=== PATIENT | male | born 1955 ===

== ENCOUNTER 2018-10-17 17:04 | Inpatient (IN) | payer OTHER ==
[2018-10-17] MEDS ORDERED: ACETAMINOPHEN TAB 325 MG TAB PO STA (17:28)
--- NOTE | 2018-10-17 17:38 | ED ---
Fever HPI - General Chief Complaint: Fever Stated Complaint: cough, SOB Time Seen by Provider: 10/17/18 17:28 Source: patient, family Mode of arrival: ambulatory Limitations: language barrier - History of Present Illness Initial Comments: 63-year-old male with no past medical history currently on no medications present today for chief complaint of cough 3 week fever times one day. Rubbing Bed Operator was used for translation, patient's family is at bedside. Patient states that he has had a cough for 3 weeks. He states when he coughs hard he has chest pain otherwise there is no pain in the chest no pain with respirations. Patient denies any hemoptysis or leg swelling. Patient states that he usually has seasonal ALLERGIES and he initially thought that this was what was going on however today developed a fever of 103F. He presented to [facility] a few days prior when they were told he had a virus and was told take [id number] medications. Patient denies abdominal pain he denies pain with urination. Patient denies sore throat, ear pain, headache, dizziness, neck stiffness. Remaining ROS (-). Upon arrival patient febrile, HR elevated. BP WNL. - Related Data Allergies Allergy/AdvReac Type Severity Reaction Status Date / Time No Known Allergies Allergy Verified 10/17/18 17:26 Review of Systems ROS Statement: Those systems with pertinent positive or pertinent negative responses have been documented in the HPI. ROS Other: All systems not noted in ROS Statement are negative. Past Medical History Past Medical History: No Reported History History of Any Multi-Drug Resistant Organisms: None Reported Past Surgical History: No Surgical Hx Reported Past Psychological History: No Psychological Hx Reported Smoking Status: Never smoker Past Alcohol Use History: Occasional Past Drug Use History: None Reported General Exam - General Exam Comments Initial Comments: General: The patient is awake and alert, in no distress, and does not appear acutely ill. Eye: +3 mm pupils are equal, round and reactive to light, extra-ocular movement s are intact. No nystagmus. There is normal conjunctiva bilaterally. No signs of icterus. No photophobia Ears, nose, mouth and throat: There are moist mucous membranes and no oral lesions. Oropharynx was not erythematous there is no tonsillar enlargement exudates or lesions. Uvula midline. Tympanic membranes are not erythematous or is no effusions bulging or retraction. No tenderness to palpation of the mastoid. No anterior cervical lymphadenopathy. Rhinorrhea, clear and bilateral nares. No tripoding, no drooling. Neck: The neck is supple, there is no tenderness or JVD. No nuchal rigidity Cardiovascular: There is a regular rate and rhythm. No murmur, rub or gallop is appreciated. Respiratory: Lungs are clear to auscultation, respirations are non-labored, breath sounds are equal. No wheezes, stridor, rales, or rhonchi. No retractions or abdominal breathing. Cough on exam. Gastrointestinal: Soft, non-distended, non-tender abdomen without masses or organomegaly noted. There is no rebound or guarding present. Bowel sounds are unremarkable. Musculoskeletal: Normal ROM, no tenderness. Strength 5/5. Sensation intact. Radial pulses equal bilaterally 2+. Neurological: A&O x 3. CN II-XII intact, There are no obvious motor or sensory deficits. Coordination appears grossly intact. Speech appears normal, no muffling. Skin: Skin is warm and dry and no rashes or lesions are noted. No extremity edema Psychiatric: Cooperative Limitations: language barrier Course Vital Signs 10/17/18 17:21 Temperature 103 F H Pulse Rate 126 H Respiratory 18 Rate Blood Pressure 128/68 O2 Sat by Pulse 95 Oximetry - Reevaluation(s) Reevaluation #1: Patient evaluated with family at bedside, Patient speaks Korean-- we redo examination and history using an official store leader. Obtaining information for the [employer]. 10/17/18 17:37 Medical Decision Making - Medical Decision Making 63-year-old male presenting for cough 3 weeks. Fever times one day. Patient is febrile heart rate elevated upon arrival repeat heart rate still elevated. Concerns for possible developing sepsis. Patient has blood cultures pending. Clinical pneumonia, was able to hear rales near right lung base. Patient is stable. Patient given IVF. Patient has leukocytosis. Given advanced age, VS with concern for impending sepsis. Patient will be admitted for IV abx and monitoring. Discussed case with Dr. Santos who was agreeable with care plan and admission. Discussed findings with patient, patient family who are agreeable and prefer admission. - Lab Data Result diagrams: 10/17/18 17:59 10/17/18 17:59 Lab Results 08/28/19 08/28/19 08/28/19 Range/Units 17:59 17:59 17:59 WBC 12.2 H (3.8-10.6) k/uL RBC 4.22 L (4.30-5.90) m/uL Hgb 12.2 L (13.0-17.5) gm/dL Hct 37.2 L (39.0-53.0) % MCV 88.3 (80.0-100.0) fL MCH 28.9 (25.0-35.0) pg MCHC 32.7 (31.0-37.0) g/dL RDW 13.0 (11.5-15.5) % Plt Count 450 (150-450) k/uL Neutrophils % 83 % Lymphocytes % 8 % Monocytes % 7 % Eosinophils % 1 % Basophils % 0 % Neutrophils # 10.2 H (1.3-7.7) k/uL Lymphocytes # 1.0 (1.0-4.8) k/uL Monocytes # 0.8 (0-1.0) k/uL Eosinophils # 0.1 (0-0.7) k/uL Basophils # 0.0 (0-0.2) k/uL PT (9.0-12.0) sec INR (<1.2) APTT (22.0-30.0) sec Sodium 138 (137-145) mmol/L Potassium 4.3 (3.5-5.1) mmol/L Chloride 108 H (98-107) mmol/L Carbon Dioxide 18 L (22-30) mmol/L Anion Gap 12 mmol/L BUN 15 (9-20) mg/dL Creatinine 0.95 (0.66-1.25) mg/dL Est GFR (CKD-EPI)AfAm >90 (>60 ml/min/1.73 sqM) Est GFR (CKD-EPI)NonAf 85 (>60 ml/min/1.73 sqM) Glucose 177 H (74-99) mg/dL Plasma Lactic Acid Ed 1.2 (0.7-2.0) mmol/L Calcium 8.4 (8.4-10.2) mg/dL Total Bilirubin 0.9 (0.2-1.3) mg/dL AST 47 (17-59) U/L ALT 60 (21-72) U/L Alkaline Phosphatase 154 H (38-126) U/L Troponin I (0.000-0.034) ng/mL Total Protein 7.1 (6.3-8.2) g/dL Albumin 3.5 (3.5-5.0) g/dL Urine Color Urine Appearance (Clear) Urine pH (5.0-8.0) Ur Specific Lyons (1.001-1.035) Urine Protein (Negative) Urine Glucose (UA) (Negative) Urine Ketones (Negative) Urine Blood (Negative) Urine Nitrite (Negative) Urine Bilirubin (Negative) Urine Urobilinogen (<2.0) mg/dL Ur Leukocyte Esterase (Negative) Urine RBC (0-5) /hpf Urine WBC (0-5) /hpf Ur Squamous Epith Cells (0-4) /hpf Urine Mucus (None) /hpf Urine Sperm (None) /hpf 10/17/18 10/17/18 10/17/18 Range/Units 17:59 17:59 18:25 WBC (3.8-10.6) k/uL RBC (4.30-5.90) m/uL Hgb (13.0-17.5) gm/dL Hct (39.0-53.0) % MCV (80.0-100.0) fL MCH (25.0-35.0) pg MCHC (31.0-37.0) g/dL RDW (11.5-15.5) % Plt Count (150-450) k/uL Neutrophils % % Lymphocytes % % Monocytes % % Eosinophils % % Basophils % % Neutrophils # (1.3-7.7) k/uL Lymphocytes # (1.0-4.8) k/uL Monocytes # (0-1.0) k/uL Eosinophils # (0-0.7) k/uL Basophils # (0-0.2) k/uL PT 11.4 (9.0-12.0) sec INR 1.1 (<1.2) APTT 24.2 (22.0-30.0) sec Sodium (137-145) mmol/L Potassium (3.5-5.1) mmol/L Chloride (98-107) mmol/L Carbon Dioxide (22-30) mmol/L Anion Gap mmol/L BUN (9-20) mg/dL Creatinine (0.66-1.25) mg/dL Est GFR (CKD-EPI)AfAm (>60 ml/min/1.73 sqM) Est GFR (CKD-EPI)NonAf (>60 ml/min/1.73 sqM) Glucose (74-99) mg/dL Plasma Lactic Acid Ed (0.7-2.0) mmol/L Calcium (8.4-10.2) mg/dL Total Bilirubin (0.2-1.3) mg/dL AST (17-59) U/L ALT (21-72) U/L Alkaline Phosphatase (38-126) U/L Troponin I <0.012 (0.000-0.034) ng/mL Total Protein (6.3-8.2) g/dL Albumin (3.5-5.0) g/dL Urine Color Dark Yellow Urine Appearance Clear (Clear) Urine pH 6.0 (5.0-8.0) Ur Specific Lyons 1.028 (1.001-1.035) Urine Protein 1+ H (Negative) Urine Glucose (UA) Negative (Negative) Urine Ketones Negative (Negative) Urine Blood Trace H (Negative) Urine Nitrite Negative (Negative) Urine Bilirubin Negative (Negative) Urine Urobilinogen 12.0 (<2.0) mg/dL Ur Leukocyte Esterase Negative (Negative) Urine RBC 4 (0-5) /hpf Urine WBC 1 (0-5) /hpf Ur Squamous Epith Cells <1 (0-4) /hpf Urine Mucus Few H (None) /hpf Urine Sperm Rare (None) /hpf Disposition Clinical Impression: Pneumonia, Systemic inflammatory response syndrome (SIRS) Disposition: [facility] Condition: Stable Is patient prescribed a controlled substance at d/c from ED?: No Referrals: None,Stated [Primary Care Provider] - 1-2 days Time of Disposition: 19:42 Decision to Admit Reason: Admit from EC Decision Date: 10/17/18 Decision Time: 19:42
[2018-10-17 18:11] LABS: Basophils % (A) 0 %; Eosinophils # (A) 0.1 k/uL (0-0.7); Eosinophils % (A) 1 %; HCT 37.2 % (39.0-53.0); HGB 12.2 gm/dL (13.0-17.5); Lymphocytes % (A) 8 %; MCH 28.9 pg (25.0-35.0); MCHC 32.7 g/dL (31.0-37.0); MCV 88.3 fL (80.0-100.0); Mean Platelet Volume 6.8; Monocytes # (A) 0.8 k/uL (0-1.0); Monocytes % (A) 7 %; Neutrophils # (A) 10.2 k/uL (1.3-7.7); Neutrophils % (A) 83 %; Platelet Count 450 k/uL (150-450); RBC 4.22 m/uL (4.30-5.90); WBC 12.2 k/uL (3.8-10.6)
[2018-10-17] MEDS: SODIUM CHLORIDE 0.9% 500 ML 500 ML IV SCH ×2 (18:18→19:45)
[2018-10-17 18:22] LABS: INR 1.1 (<1.2); Partial Thromboplastin Time 24.2 sec (22.0-30.0); Prothrombin Time 11.4 sec (9.0-12.0)
--- NOTE | 2018-10-17 18:25 | XR ---
EXAMINATION TYPE: XR chest 2V DATE OF EXAM: 10/17/2018 COMPARISON: None INDICATION: Fever short of breath TECHNIQUE: Frontal and lateral views of the chest are obtained. FINDINGS: The heart size is mildly prominent. The pulmonary vasculature is normal. The lungs are clear.. IMPRESSION: 1. No acute pulmonary process.
[2018-10-17 18:37] LABS: Appearance,Urine Clear (Clear); Bilirubin,Urine Negative (Negative); Blood,Urine Trace (Negative); Color,Urine Dark Yellow; Glucose,Urine (UA) Negative (Negative); Ketones,Urine Negative (Negative); Leukocyte Esterase,Urine Negative (Negative); Mucus,Urine Few /hpf; Nitrite,Urine Negative (Negative); Protein,Urine 1+ (Negative); RBC,Urine 4 /hpf (0-5); Specific Gravity,Urine 1.028 (1.001-1.035); Sperm,Urine Rare /hpf; Squamous Epithelial Cell,Urine <1 /hpf (0-4); WBC,Urine 1 /hpf (0-5)
[2018-10-17 18:42] LABS: ALT 60 U/L (21-72); AST 47 U/L (17-59); African American GFR (CKD) >90 (>60 ml/min/1.73 sqM); Albumin 3.5 g/dL (3.5-5.0); Alkaline Phosphatase 154 U/L (38-126); Anion Gap 12 mmol/L; Blood Urea Nitrogen 15 mg/dL (9-20); Calcium 8.4 mg/dL (8.4-10.2); Carbon Dioxide 18 mmol/L (22-30); Chloride 108 mmol/L (98-107); Glucose 177 mg/dL (74-99); Potassium 4.3 mmol/L (3.5-5.1); Sodium 138 mmol/L (137-145); Total Bilirubin 0.9 mg/dL (0.2-1.3); Total Protein 7.1 g/dL (6.3-8.2)
[2018-10-17] MEDS ORDERED: SODIUM CHLORIDE 0.9% 500 ML 500 ML IV ONE (19:42)
[2018-10-17] MEDS ORDERED: SODIUM CHLORIDE 0.9% 1,000 ML IV ONE (19:42)
[2018-10-17] MEDS ORDERED: IBUPROFEN 400 MG TAB PO PRN (19:48)
[2018-10-17] MEDS ORDERED: ACETAMINOPHEN TAB 325 MG TAB PO PRN (19:48)
[2018-10-17] MEDS ORDERED: NALOXONE 0.4 MG/ML 1 ML VIAL IV PRN (19:48)
[2018-10-17] MEDS: SODIUM CHLORIDE 0.9% 1,000 ML IV SCH (19:49)
[2018-10-18] MEDS ORDERED: BENZONATATE 100 MG CAP PO PRN (00:34)
--- NOTE | 2018-10-18 00:50 | P.HPIM ---
History of Present Illness H&P Date: 10/17/18 Chief Complaint: Fever and cough 63-year-old male with no significant past medical history Patient history was obtained by talking to the family who was translating to the patient due to language barrier Patient came into the hospital today with 3 week history of subacute cough, he reports that he gets seasonal ALLERGIES and that's what he thought it was initially however because he was not improving he went to urgent care who prescribed him some medications but no antibiotics to help with his cough without much improvement. He reports cough started progressing became associated with yellow phlegm and sometimes streaks of blood. Over the past few days he started experiencing pleuritic chest pain with severe attacks of coughing. Today he was febrile feeling very tired slightly confused and generalized malaise for which she decided come to the hospital. He denies any runny nose or sore throat denies any sinus pain. Denies any muscle aches denies any neck pain denies any urinary symptoms or changes in his bowel habits denies any nausea vomiting or abdominal pain. In the ED chest x-ray was negative. However he had a fever of 103 and was tachycardic he also had elevated white count symptoms were suggestive of atypical pneumonia for which she was admitted for monitoring due to advanced age and confusion Review of Systems Pertinent positives as noted in HPI. All other systems were reviewed and are negative Past Medical History Past Medical History: No Reported History History of Any Multi-Drug Resistant Organisms: None Reported Past Surgical History: No Surgical Hx Reported Past Psychological History: No Psychological Hx Reported Smoking Status: Never smoker Past Alcohol Use History: Occasional Past Drug Use History: None Reported - Past Family History Family Family Medical History: No Reported History (No history of CAD no sick contact) Medications and Allergies Home Medications Medication Instructions Recorded Confirmed Type Benzonatate [Tessalon Perles] 100 mg PO TID PRN 10/17/18 10/17/18 History Allergies Allergy/AdvReac Type Severity Reaction Status Date / Time No Known Allergies Allergy Verified 10/17/18 20:07 Physical Exam Vitals: Vital Signs Temp Pulse Pulse Resp BP BP Pulse Ox 10/17/18 22:22 99.0 F 69 16 129/76 99 10/17/18 19:34 98.1 F 109 H 18 118/71 95 10/17/18 17:21 103 F H 126 H 18 128/68 95 Intake and Output 10/17/18 10/17/18 10/17/18 06:59 14:59 22:59 Other: Weight 84.459 kg Constitutional: No acute distress, conversant, pleasant Eyes: Anicteric sclerae, moist conjunctiva, no lid-lag Pupils equal round reactive to light ENMT: NC/AT Oropharynx clear, no erythema, exudates Neck: Supple, FROM, no masses, or JVD No carotid bruits No thyromegaly Lungs: Clear to auscultation Clear to percussion Normal respiratory effort, no accessory muscle use Cardiovascular: Heart regular in rate and rhythm, No murmurs, gallops, or rubs No peripheral edema Abdominal: Soft Nontender, no guarding, rebound or rigidity Abdomen moving with respiration Normoactive bowel sounds No hepatomegaly, No splenomegaly No palpable mass No abdominal wall hernia noted Skin: Normal temperature, tone, texture, turgor No induration No subcutaneous nodules No rash, lesions No ulcers Extremities: No digital cyanosis No clubbing Pedal pulses intact and symmetrical Radial pulses intact and symmetrical No calf tenderness Psychiatric: Alert and oriented to person, place and time Appropriate affect fair judgment Neuro Muscles Strength 5/5 in all 4 extremities Sensation to light touch grossly present throughout Cranial nerves II-XII grossly intact No focal sensory deficits Lymphatics: no palpable cervical or supraclavicular , or inguinal lymph nodes Results CBC & Chem 7: 10/17/18 17:59 10/17/18 17:59 Labs: Abnormal Lab Results - Last 24 Hours (Table) 10/17/18 10/17/18 10/17/18 Range/Units 17:59 17:59 18:25 WBC 12.2 H (3.8-10.6) k/uL RBC 4.22 L (4.30-5.90) m/uL Hgb 12.2 L (13.0-17.5) gm/dL Hct 37.2 L (39.0-53.0) % Neutrophils # 10.2 H (1.3-7.7) k/uL Chloride 108 H (98-107) mmol/L Carbon Dioxide 18 L (22-30) mmol/L Glucose 177 H (74-99) mg/dL Alkaline Phosphatase 154 H (38-126) U/L Urine Protein 1+ H (Negative) Urine Blood Trace H (Negative) Urine Mucus Few H (None) /hpf Assessment and Plan Assessment: 63-year-old male with no significant past medical history admitted as an inpatient with anticipated length of stay of more than 48 hours due to sepsis secondary to clinical pneumonia. Plan: Sepsis (leukocytosis tachycardia and fever) secondary to clinical pneumonia Subacute cough most likely secondary to atypical pneumonia, Denies any GERD symptoms, denies postnasal drip, denies flulike symptoms Follow-up cultures Check urine Legionella antigen IV fluid hydration Symptomatic control Levaquin for 5 days Mild anemia Consider age-appropriate cancer screening as an outpatient DVT prophylaxis heparin subcu 3 times a day CODE STATUS: Full code Discussed with: Patient, ER, RN Anticipated discharge: 48-[address]: Home A total of 60 minutes was spent on the care of this complex patient more than 50% of the time was spent in counseling and care coordination.
[2018-10-18] MEDS ORDERED: HEPARIN SODIUM,PORCINE 5,000 UNIT/ML 1 ML VIAL SQ SCH (08:00)
[2018-10-18] MEDS ORDERED: SODIUM CHLORIDE 0.9% 1,000 ML IV ONE ×2 (08:08→14:06)
[2018-10-18 08:30] LABS: Basophils % (A) 0 %; Eosinophils % (A) 0 %; HCT 36.2 % (39.0-53.0); HGB 11.8 gm/dL (13.0-17.5); Lymphocytes # (A) 1.5 k/uL (1.0-4.8); Lymphocytes % (A) 13 %; MCH 28.8 pg (25.0-35.0); MCHC 32.5 g/dL (31.0-37.0); MCV 88.6 fL (80.0-100.0); Mean Platelet Volume 6.9; Monocytes # (A) 0.8 k/uL (0-1.0); Monocytes % (A) 7 %; Neutrophils # (A) 9.2 k/uL (1.3-7.7); Neutrophils % (A) 78 %; Platelet Count 431 k/uL (150-450); RBC 4.08 m/uL (4.30-5.90); RDW 13.1 % (11.5-15.5); WBC 11.7 k/uL (3.8-10.6)
[2018-10-18 08:49] LABS: ALT 50 U/L (21-72); AST 27 U/L (17-59); African American GFR (CKD) >90 (>60 ml/min/1.73 sqM); Albumin 3.3 g/dL (3.5-5.0); Alkaline Phosphatase 129 U/L (38-126); Anion Gap 12 mmol/L; Blood Urea Nitrogen 12 mg/dL (9-20); Calcium 8.1 mg/dL (8.4-10.2); Carbon Dioxide 19 mmol/L (22-30); Chloride 109 mmol/L (98-107); Glucose 122 mg/dL (74-99); Potassium 4.2 mmol/L (3.5-5.1); Sodium 140 mmol/L (137-145); Total Bilirubin 1.2 mg/dL (0.2-1.3); Total Protein 6.8 g/dL (6.3-8.2)
[2018-10-18] MEDS ORDERED: guaiFENesin-Coden 100-10MG/5ML 10 ML CUP PO PRN (09:10)
[2018-10-18] MEDS: LEVOFLOXACIN 750 MG TAB PO SCH (09:14)
[2018-10-18] MEDS: SODIUM CHLORIDE 0.9% 1,000 ML IV SCH ×2 (11:07→16:57)
[2018-10-18 14:05] LABS: Glucose,Whole Blood 165 mg/dL (75-99)
[2018-10-18] MEDS ORDERED: SODIUM CHLORIDE 0.9% 500 ML 500 ML IV ONE (14:07)
[2018-10-18] MEDS ORDERED: ENOXAPARIN 100 MG/ML SYRINGE SQ STA (14:34)
[2018-10-18] MEDS ORDERED: METOPROLOL TARTRATE 25 MG TAB PO STA (14:46)
[2018-10-18] MEDS ORDERED: METOPROLOL TARTRATE 50 MG TAB PO STA (14:51)
--- NOTE | 2018-10-18 17:23 | ECHOF ---
Referral Reason:SVT new onset MEASUREMENTS -------- HEIGHT: 167.6 cm WEIGHT: 90.7 kg BP: RVIDd: 3.2 cm (< 3.3) IVSd: 0.9 cm (0.6 - 1.1) LVIDd: 4.6 cm (3.9 - 5.3) LVPWd: 1.2 cm (0.6 - 1.1) IVSs: 1.6 cm LVIDs: 3.4 cm LVPWs: 1.6 cm LAESV Index (A-L): 22.92 ml/m Ao Diam: 3.7 cm (2.0 - 3.7) AV Cusp: 2.2 cm (1.5 - 2.6) MV EXCURSION: 16.659 mm (> 18.000) MV EF SLOPE: 234 mm/s (70 - 150) EPSS: 0.3 cm MV E John: 1.35 m/s MV DecT: 98 ms MV A John: 0.54 m/s MV E/A Ratio: 2.50 FINDINGS -------- Resting tachycardia (HR>100bpm). This was a technically adequate study. The left ventricular size is normal. There is borderline concentric left ventricular hypertrophy. Overall left ventricular systolic function is normal with, an EF between 55 - 60 %. The right ventricle is normal in size. Normal LA size by volume 22+/-6 ml/m2. The right atrium is normal in size. Interatrial and interventricular septum intact. The aortic valve is trileaflet and appears structurally normal. The mitral valve is normal. The tricuspid valve appears structurally normal. Trace/mild (physiologic) pulmonic regurgitation. The aortic root size is normal. Normal inferior vena cava with normal inspiratory collapse consistent with estimated right atrial pre ssure of 5 mmHg. There is no pericardial effusion. CONCLUSIONS -------- 1. Resting tachycardia (HR>100bpm). 2. This was a technically adequate study. 3. The left ventricular size is normal. 4. There is borderline concentric left ventricular hypertrophy. 5. Overall left ventricular systolic function is normal with, an EF between 55 - 60 %. 6. The right ventricle is normal in size. 7. Normal LA size by volume 22+/-6 ml/m2. 8. The right atrium is normal in size. 9. Interatrial and interventricular septum intact. 10. The aortic valve is trileaflet and appears structurally normal. 11. The mitral valve is normal. 12. The tricuspid valve appears structurally normal. 13. Trace/mild (physiologic) pulmonic regurgitation. 14. The aortic root size is normal. 15. Normal inferior vena cava with normal inspiratory collapse consistent with estimated right atrial pressure of 5 mmHg. 16. There is no pericardial effusion. LARRY CAR OPERATOR: Joselyn Barnes RDCS
--- NOTE | 2018-10-18 17:40 | P.PN ---
Subjective Progress Note Date: 10/18/18 The patient is here and examined follow-up, the patient is obeying and there is a language barrier however patient's daughter is present is able to translate. Patient complaining of pleuritic chest discomfort and cough, denies any subjective fevers or chills. Had episodes of coughing that kept him up last night. Patient becoming increasingly tachycardic, nursing concerned, EKG showing some SVT bolus given. Echocardiogram and d-dimer ordered. Chest x-ray from yesterday showing no acute process Objective - Vital Signs Vital signs: Vital Signs Temp 97.8 F 10/18/18 11:13 Pulse 136 H 10/18/18 17:11 Resp 16 10/18/18 16:42 BP 139/90 10/18/18 16:42 Pulse Ox 92 L 10/18/18 16:42 Intake & Output 10/17/18 10/18/18 10/18/18 18:59 06:59 18:59 Intake Total 2250 Balance 2250 Weight 84.459 kg Intake: Intake, IV Titration 2250 Amount Sodium Chloride 0.9% 1, 750 000 ml @ 125 mls/hr IV . Q8H ANNIKA Rx#:[id number] Sodium Chloride 0.9% 500 500 ml 500 ml @ 999 mls/hr IV .Q31M ONE Rx#:[id number] Sodium Chloride 0.9% 500 1000 ml 500 ml @ 999 mls/hr IV .Q31M ONE Rx#:[id number] Other: Voiding Method Toilet # Voids 1 1 - Exam Constitutional: No acute distress, conversant, pleasant Eyes: Anicteric sclerae, moist conjunctiva, no lid-lag, PERRLA ENMT: NC/AT,Oropharynx clear, no erythema, exudates Neck:Supple, FROM, no masses, or JVD, No carotid bruits; No thyromegaly Lungs: Clear to auscultation, Clear to percussion, Normal respiratory effort, no accessory muscle use Cardiovascular: Heart regular in rate and rhythm, No murmurs, gallops, or rubs no peripheral edema Abdominal: Soft Nontender, nom distended, no guarding, no rebound or rigidity, Normoactive bowel sounds No hepatomegaly, No splenomegaly, No palpable mass No abdominal wall hernia noted Skin: Normal temperature, tone, texture, turgor, No induration No subcutaneous nodules, No rash, lesions, No ulcers Extremities:No digital cyanosis No clubbing, Pedal pulses intact and symmetrical Radial pulses intact and symmetrical Normal gait and station, No calf tenderness Psychiatric: Alert and oriented to person, place and time, Appropriate affect Intact judgement Neuro: Muscles Strength 5/5 in all 4 extremities, Sensation to light touch grossly present throughout, Cranial nerves II-XII grossly intact. No focal sensory deficits - Labs CBC & Chem 7: 10/18/18 07:52 10/18/18 07:52 Labs: Abnormal Lab Results - Last 24 Hours (Table) 10/17/18 10/17/18 10/17/18 Range/Units 17:59 17:59 18:25 WBC 12.2 H (3.8-10.6) k/uL RBC 4.22 L (4.30-5.90) m/uL Hgb 12.2 L (13.0-17.5) gm/dL Hct 37.2 L (39.0-53.0) % Neutrophils # 10.2 H (1.3-7.7) k/uL D-Dimer (<0.60) mg/L FEU Chloride 108 H (98-107) mmol/L Carbon Dioxide 18 L (22-30) mmol/L Glucose 177 H (74-99) mg/dL POC Glucose (mg/dL) (75-99) mg/dL Calcium (8.4-10.2) mg/dL Alkaline Phosphatase 154 H (38-126) U/L Albumin (3.5-5.0) g/dL Urine Protein 1+ H (Negative) Urine Blood Trace H (Negative) Urine Mucus Few H (None) /hpf 10/18/18 10/18/18 10/18/18 Range/Units 07:52 07:52 14:03 WBC 11.7 H (3.8-10.6) k/uL RBC 4.08 L (4.30-5.90) m/uL Hgb 11.8 L (13.0-17.5) gm/dL Hct 36.2 L (39.0-53.0) % Neutrophils # 9.2 H (1.3-7.7) k/uL D-Dimer (<0.60) mg/L FEU Chloride 109 H (98-107) mmol/L Carbon Dioxide 19 L (22-30) mmol/L Glucose 122 H (74-99) mg/dL POC Glucose (mg/dL) 165 H (75-99) mg/dL Calcium 8.1 L (8.4-10.2) mg/dL Alkaline Phosphatase 129 H (38-126) U/L Albumin 3.3 L (3.5-5.0) g/dL Urine Protein (Negative) Urine Blood (Negative) Urine Mucus (None) /hpf 10/18/18 Range/Units 14:53 WBC (3.8-10.6) k/uL RBC (4.30-5.90) m/uL Hgb (13.0-17.5) gm/dL Hct (39.0-53.0) % Neutrophils # (1.3-7.7) k/uL D-Dimer 4.69 H (<0.60) mg/L FEU Chloride (98-107) mmol/L Carbon Dioxide (22-30) mmol/L Glucose (74-99) mg/dL POC Glucose (mg/dL) (75-99) mg/dL Calcium (8.4-10.2) mg/dL Alkaline Phosphatase (38-126) U/L Albumin (3.5-5.0) g/dL Urine Protein (Negative) Urine Blood (Negative) Urine Mucus (None) /hpf Microbiology - Last 24 Hours (Table) 10/17/18 18:25 Urine Culture - Preliminary Urine,Voided Assessment and Plan (1) Dyspnea Narrative/Plan: * Patient presented with dyspnea and fever * And was started on empiric treatment for pneumonia with Rocephin and Levaquin despite negative chest x-ray * Patient continuing to be tachycardic with heart rate in the 140s elevated d- dimer, NT proBNP also elevated at 1400 hence echocardiogram ordered * Patient started on empiric treatment for PE pending CTA of the chest with therapeutic Lovenox and eliquis Current Visit: Yes Status: Acute Code(s): R06.00 - DYSPNEA, UNSPECIFIED SNOMED Code(s): 257982420 (2) Systemic inflammatory response syndrome (SIRS) Narrative/Plan: * Continue to monitor * Supportive therapy with antiemetics fluids Current Visit: Yes Status: Acute Code(s): R65.10 - SIRS OF NON-INFECTIOUS ORIGIN W/O ACUTE ORGAN DYSFUNCTION SNOMED Code(s): 592443067 (3) Sinus tachycardia Narrative/Plan: * Echocardiogram ordered and pending cardiology consulted * Transferred to cardiac telemetry unit * Given a dose of metoprolol Current Visit: Yes Status: Acute Code(s): R00.0 - TACHYCARDIA, UNSPECIFIED SNOMED Code(s): 99076020 (4) Elevated d-dimer Narrative/Plan: * As above Current Visit: Yes Status: Acute Code(s): R79.89 - OTHER SPECIFIED ABNORMAL FINDINGS OF BLOOD CHEMISTRY SNOMED Code(s): 289410966 Plan: Disposition * Follow-up consultants recommendations follow-up echo and CTA results * We'll check a influenza
--- NOTE | 2018-10-18 18:21 | CT ---
EXAMINATION TYPE: CT chest angio for PE DATE OF EXAM: 10/18/2018 COMPARISON: None HISTORY: Cough and difficulty breathing. CT DLP: 414.4 mGycm Automated exposure control for dose reduction was used. CONTRAST: CT Chest for pulmonary embolism performed with with IV Contrast, patient injected with 77ml mL of Iso jodi 370. FINDINGS: There are bilateral pleural effusions. There is right lower lobe infiltrate and atelectasis. There is pericardial effusion. Heart is enlarged. Thoracic aorta is atheromatous. There is no aneurysm or dis section. There is normal contrast opacification of the pulmonary arteries. I see no filling defect. There is n o mediastinal adenopathy. There are no hilar masses. Thoracic vertebra have normal alignment. There is spurring of the endplates in lower thoracic spine. There is no compression fracture. IMPRESSION: No evidence of pulmonary embolism. Pleural effusions and right lower lobe infiltrate and atelectasis consistent with congestive heart fa ilure. Mild pericardial effusion.
[2018-10-18] MEDS ORDERED: APIXABAN 5 MG TAB PO SCH (21:00)
[2018-10-18] MEDS: METOPROLOL TARTRATE 25 MG TAB PO SCH (21:19)
[2018-10-18] MEDS: FUROSEMIDE 10 MG/ML 4 ML VIAL IV SCH (21:39)
[2018-10-19] MEDS: FUROSEMIDE 10 MG/ML 4 ML VIAL IV SCH (07:49)
[2018-10-19] MEDS: METOPROLOL TARTRATE 25 MG TAB PO SCH ×2 (07:51→18:56)
[2018-10-19] MEDS: LEVOFLOXACIN 750 MG TAB PO SCH (07:52)
--- NOTE | 2018-10-19 08:44 | US ---
EXAMINATION TYPE: US chest DATE OF EXAM: 10/19/2018 COMPARISON: NONE CLINICAL HISTORY: pleural effusions. Bilateral pleural effusion. TECHNIQUE: Targeted ultrasound of the posterior lower bilateral hemithoraces EXAM MEASUREMENTS: Right Pleural Effusion pocket size: 2.6 cm Right skin surface to fluid distance: 2.5 cm Left Pleural Effusion pocket size: 4.3 cm Left skin surface to fluid distance: 2.9 cm Pulmonologists are able to review the images in the patient?s EMR. 1.5 cm to lung tissue on the right side. 1.5 cm to spleen on the left side. Did not martita for thoracen tesis. IMPRESSIONS: Small bilateral pleural effusions
[2018-10-19 08:51] LABS: African American GFR (CKD) >90 (>60 ml/min/1.73 sqM); Anion Gap 13 mmol/L; Blood Urea Nitrogen 13 mg/dL (9-20); Calcium 8.6 mg/dL (8.4-10.2); Carbon Dioxide 22 mmol/L (22-30); Chloride 107 mmol/L (98-107); Glucose 134 mg/dL (74-99); Potassium 3.9 mmol/L (3.5-5.1); Sodium 142 mmol/L (137-145)
[2018-10-19 09:08] LABS: Basophils % (A) 0 %; Eosinophils # (A) 0.2 k/uL (0-0.7); Eosinophils % (A) 2 %; HCT 40.4 % (39.0-53.0); HGB 13.4 gm/dL (13.0-17.5); Lymphocytes # (A) 1.3 k/uL (1.0-4.8); Lymphocytes % (A) 16 %; MCH 29.2 pg (25.0-35.0); MCHC 33.1 g/dL (31.0-37.0); MCV 88.3 fL (80.0-100.0); Mean Platelet Volume 7.2; Monocytes # (A) 0.6 k/uL (0-1.0); Monocytes % (A) 7 %; Neutrophils % (A) 74 %; Platelet Count 496 k/uL (150-450); RBC 4.58 m/uL (4.30-5.90); RDW 13.9 % (11.5-15.5); WBC 8.2 k/uL (3.8-10.6)
[2018-10-19] MEDS ORDERED: METOPROLOL TARTRATE 25 MG TAB PO STA ×3 (11:28→19:29)
--- NOTE | 2018-10-19 12:20 | CONS ---
CONSULTATION The history is obtained from the daughter. Mr. Loredo is a 63-year-old male, [place] in origin who presented to the hospital with symptoms of cough and fever. Cardiology consultation was requested because of abnormality on the EKG. Patient had evidence of sinus tachycardia. He is in sinus mechanism at this time, feeling better. He is denying any chest pain. No dizziness. No palpitation. He denies any nausea. According to the daughter, he is active usually, has no exertional chest pain. He has no symptoms of PND, orthopnea or significant peripheral edema. He has no prior cardiac history. He has no history of chronic tobacco use. No history of diabetes, hypertension or hyperlipidemia. REVIEW OF SYSTEMS: RESPIRATORY SYSTEM: He had a cough. No wheezing. No history of obstructive lung disease. GI SYSTEM: No GI bleeding. No peptic ulcer disease. SYSTEM: No dysuria or hematuria. NERVOUS SYSTEM: No stroke or seizure. PHYSICAL EXAMINATION: A 63-year-old male, alert, oriented, in no apparent distress. Blood pressure 124/60 with a heart rate in the 80s. HEAD: Normocephalic. EYES: Sclerae nonicteric. NECK: Good upstroke, no bruit, no jugular venous distension. CHEST: Clear to auscultation. HEART: Regular rate and rhythm, S1, S2. No S3. No rub appreciated. ABDOMEN: Soft, nontender. Positive bowel sounds, no organomegaly. EXTREMITIES: No edema. LAB DATA: Revealed on presentation, white blood cell of 12.2, BUN and creatinine of 15 and 0.95. Troponin less than 0.012. NT proBNP of 1410. His NT proBNP today was 1900. His echocardiogram revealed a preserved left ventricular size and systolic function with no significant valvular disease. His chest CT revealed pleural effusion with right lower lobe infiltrate. His EKG revealed a sinus mechanism with sinus tachycardia, nonspecific ST-T wave changes. Reviewing the rhythm strip, there is no evidence of SVT or atrial fibrillation or flutter. IMPRESSION: 1. Cough and fever with possible infiltrate on the x-ray. 2. Mild elevation of the NT proBNP with no clear clinical symptoms of heart failure and preserved systolic function. 3. No evidence of pulmonary embolism by CT angiogram of the chest. RECOMMENDATION: From the cardiac standpoint, I will stop his IV Lasix. Will give him an oral dose. Will continue with his medical regimen. He is stable from the cardiac standpoint at this point. Thank you for this consult. Will follow with you. MMODL / IJN: [id number] /
--- NOTE | 2018-10-19 13:31 | P.PN ---
Subjective Progress Note Date: 10/19/18 The patient is here and examined follow-up, the patient is obeying and there is a language barrier however patient's daughter is present is able to translate. Patient complaining of pleuritic chest discomfort and cough but reports as been better since being on Robitussin-AC, denies any subjective fevers or chills. Patient was able to sleep better last night. Patient still having episodes of sinus tachycardia , CTA of the chest yesterday ruled out PE but did show pleural effusion and a right lower lobe infiltrate and atelectasis consistent with congestive heart failure, echocardiogram performed showed a preserved LVEF of 55-60% without any significant valvular abnormalities. Objective - Vital Signs Vital signs: Vital Signs Temp 96 F L 10/19/18 11:20 Pulse 136 H 10/19/18 11:20 Resp 18 10/19/18 11:20 BP 123/78 10/19/18 12:35 Pulse Ox 91 L 10/19/18 11:20 Intake & Output 10/18/18 10/19/18 10/19/18 18:59 06:59 18:59 Intake Total 2250 110 Output Total 3525 Balance 2250 -3525 110 Intake: IV 10 0.9 10 Intake, IV Titration 2250 Amount Sodium Chloride 0.9% 1, 750 000 ml @ 125 mls/hr IV . Q8H ANNIKA Rx#:[id number] Sodium Chloride 0.9% 500 500 ml 500 ml @ 999 mls/hr IV .Q31M ONE Rx#:[id number] Sodium Chloride 0.9% 500 1000 ml 500 ml @ 999 mls/hr IV .Q31M ONE Rx#:[id number] Oral 100 Output: Urine 3525 Other: Voiding Method Toilet Toilet Urinal Urinal # Voids 1 1 - Exam Constitutional: No acute distress, conversant, pleasant Eyes: Anicteric sclerae, moist conjunctiva, no lid-lag, PERRLA ENMT: NC/AT,Oropharynx clear, no erythema, exudates Neck:Supple, FROM, no masses, or JVD, No carotid bruits; No thyromegaly Lungs: Clear to auscultation, Clear to percussion, Normal respiratory effort, no accessory muscle use Cardiovascular: Heart regular in rate and rhythm, No murmurs, gallops, or rubs no peripheral edema Abdominal: Soft Nontender, nom distended, no guarding, no rebound or rigidity, Normoactive bowel sounds No hepatomegaly, No splenomegaly, No palpable mass No abdominal wall hernia noted Skin: Normal temperature, tone, texture, turgor, No induration No subcutaneous nodules, No rash, lesions, No ulcers Extremities:No digital cyanosis No clubbing, Pedal pulses intact and symmetrical Radial pulses intact and symmetrical Normal gait and station, No calf tenderness Psychiatric: Alert and oriented to person, place and time, Appropriate affect Intact judgement Neuro: Muscles Strength 5/5 in all 4 extremities, Sensation to light touch grossly present throughout, Cranial nerves II-XII grossly intact. No focal sensory deficits - Labs CBC & Chem 7: 10/19/18 08:10 10/19/18 08:10 Labs: Abnormal Lab Results - Last 24 Hours (Table) 10/18/18 10/18/18 10/19/18 Range/Units 14:03 14:53 08:10 Plt Count 496 H (150-450) k/uL D-Dimer 4.69 H (<0.60) mg/L FEU Glucose (74-99) mg/dL POC Glucose (mg/dL) 165 H (75-99) mg/dL 10/19/18 Range/Units 08:10 Plt Count (150-450) k/uL D-Dimer (<0.60) mg/L FEU Glucose 134 H (74-99) mg/dL POC Glucose (mg/dL) (75-99) mg/dL Microbiology - Last 24 Hours (Table) 10/17/18 17:59 Blood Culture - Preliminary Blood No Growth after 24 hours Assessment and Plan (1) Sepsis Narrative/Plan: * Likely secondary to community-acquired pneumonia versus atypical pneumonia * Patient continues to be afebrile, having intermittent episodes of tachycardia, leukocytosis has resolved * Continue empiric treatment with Levaquin along with breathing treatments Current Visit: Yes Status: Acute Code(s): A41.9 - SEPSIS, UNSPECIFIED ORGANISM SNOMED Code(s): 40214233 (2) Dyspnea Narrative/Plan: * Multifactorial secondary to pneumonia and possible CHF with minimal pleural effusions noted on chest ultrasound * Patient continuing to be tachycardic with heart rate in the 140s elevated d- dimer, NT proBNP also elevated at 1400 hence echocardiogram ordered * Therapeutic anticoagulation discontinued given negative CTA of the chest ruling out PE Current Visit: Yes Status: Acute Code(s): R06.00 - DYSPNEA, UNSPECIFIED SNOMED Code(s): 010568984 (3) Sinus tachycardia Narrative/Plan: * Echocardiogram indicating preserved LVEF with no significant valvular abnor malities * Transferred to cardiac telemetry unit * Continue with current metoprolol dosing 25 mg by mouth twice a day * Cardiology consultation and recommendations are appreciated Current Visit: Yes Status: Acute Code(s): R00.0 - TACHYCARDIA, UNSPECIFIED SNOMED Code(s): 99635730 (4) Pneumonia Narrative/Plan: * Continue antibiotic regimen for a total of 7 days Current Visit: Yes Status: Acute Code(s): J18.9 - PNEUMONIA, UNSPECIFIED ORGANISM SNOMED Code(s): 623727233 (5) Elevated d-dimer Narrative/Plan: * As above Current Visit: Yes Status: Acute Code(s): R79.89 - OTHER SPECIFIED ABNORMAL FINDINGS OF BLOOD CHEMISTRY SNOMED Code(s): 954127474 Plan: * Patient doing well breathing is improved but continues to have episodes of tachycardia * We'll continue to monitor on telemetry * Anticipated discharge 1-2 days
[2018-10-19] MEDS ORDERED: FUROSEMIDE 20 MG TAB PO SCH (21:00)
[2018-10-20 00:08] VITALS: RESP 16
[2018-10-20 06:20] LABS: Basophils % (A) 0 %; Eosinophils # (A) 0.3 k/uL (0-0.7); Eosinophils % (A) 4 %; HCT 39.4 % (39.0-53.0); Lymphocytes # (A) 1.6 k/uL (1.0-4.8); Lymphocytes % (A) 20 %; MCH 28.7 pg (25.0-35.0); MCHC 33.1 g/dL (31.0-37.0); MCV 86.9 fL (80.0-100.0); Mean Platelet Volume 7.5; Monocytes # (A) 0.5 k/uL (0-1.0); Monocytes % (A) 6 %; Neutrophils # (A) 5.4 k/uL (1.3-7.7); Neutrophils % (A) 68 %; Platelet Count 569 k/uL (150-450); RBC 4.54 m/uL (4.30-5.90); RDW 13.8 % (11.5-15.5); WBC 7.9 k/uL (3.8-10.6)
[2018-10-20 06:26] LABS: African American GFR (CKD) >90 (>60 ml/min/1.73 sqM); Anion Gap 13 mmol/L; Blood Urea Nitrogen 22 mg/dL (9-20); Calcium 8.7 mg/dL (8.4-10.2); Carbon Dioxide 22 mmol/L (22-30); Chloride 107 mmol/L (98-107); Glucose 131 mg/dL (74-99); Potassium 4.2 mmol/L (3.5-5.1); Sodium 142 mmol/L (137-145)
[2018-10-20] MEDS: LEVOFLOXACIN 750 MG TAB PO SCH (08:48)
[2018-10-20] MEDS: METOPROLOL TARTRATE 25 MG TAB PO SCH (08:48)
[2018-10-20 09:04] VITALS: BP 123/80; PULSE 91; TEMP 97.8
--- NOTE | 2018-10-20 09:47 | P.DS ---
Providers Date of admission: 10/19/18 08:36 Expected date of discharge: 10/20/18 Attending physician: Valerie Da Silva MD Consults: 10/18/18 14:48 Consult Physician Stat Consulting Provider: Jonah Martinez Consult Reason/Comments: new onset SVT Do you want consulting provider notified?: Already Contacted Primary care physician: Stated None - Discharge Diagnosis(es) (1) Sepsis Current Visit: Yes Status: Acute (2) Dyspnea Current Visit: Yes Status: Acute (3) Sinus tachycardia Current Visit: Yes Status: Acute (4) Pneumonia Current Visit: Yes Status: Acute (5) Elevated d-dimer Current Visit: Yes Status: Acute Hospital Course: The patient is a 63-year-old Eastern ([place]) male that was admitted with sepsis secondary to community-acquired/atypical pneumonia after presenting with dyspnea with cough and pleuritic chest discomfort. The patient was started on empiric IV antibiotics with Rocephin and azithromycin and switch to Levaquin along with scheduled and prn bronchodilator DuoNeb breathing treatments, the patient was febrile on admission but his fever broke quickly and his leukocytosis resolved. For workup of his dyspnea, the patient was noted to have elevated d-dimer and was given a loading dose of therapeutic Lovenox pending CTA of the chest was ordered which was subsequently negative for PE but did show pleural effusions and right lower lobe infiltrate and atelectasis consi stent with congestive heart failure. The patient was started on IV diuretics with Lasix. Subsequent chest ultrasound showed minimal pleural effusions. The patient began having ongoing sinus tachycardia with heart rate in the 150s, EKG done no suggestive of sinus tachycardia. Echocardiogram performed showed a preserved LVEF of 55-60% without any significant valvular abnormalities, influenza a and B was negative. Patient was started on metoprolol for his ongoing sinus tachycardia. With treatment the patient improved and was cleared by cardiology for discharge. This process took approximately 35 minutes. Focused exam Respiratory : clear to auscultation bilaterally no wheezes or rhonchi Cardiovascular: Regular rate and rhythm no murmurs rubs or gallops, no peripheral edema noted Patient Condition at Discharge: Stable Plan - Discharge Summary Discharge Rx Participant: No New Discharge Prescriptions: New Levofloxacin [Levaquin] 750 mg PO DAILY #5 tab Metoprolol Tartrate [Lopressor] 25 mg PO BID #60 tab Continue Benzonatate [Tessalon Perles] 100 mg PO TID PRN PRN Reason: Cough Discharge Medication List Benzonatate [Tessalon Perles] 100 mg PO TID PRN 10/17/18 [History] Levofloxacin [Levaquin] 750 mg PO DAILY #5 tab 10/20/18 [Rx] Metoprolol Tartrate [Lopressor] 25 mg PO BID #60 tab 10/20/18 [Rx] Follow up Appointment(s)/Referral(s): None,Stated [Primary Care Provider] - 1-2 days Discharge Disposition: HOME SELF-CARE
--- NOTE | 2018-10-20 13:03 | PN ---
PROGRESS NOTE A 63-year-old gentleman who was admitted to the hospital with tachycardia, had an echocardiogram done that showed normal LV systolic function. He is doing well and is currently free of symptoms. On exam, vital signs are stable. There is no jugular venous distention. Chest is clear to auscultation and percussion. Heart exam reveals first and second heart sounds. No gallop. There is no pericardial rub. Exam of extremities did not reveal any edema. He is currently on Lopressor 25 b.i.d. ASSESSMENT: Sinus tachycardia, improved. He is on beta blockers, which I am going to continue. MMODL / IJN: [id number] /
--- NOTE | 2018-10-25 10:48 | CDI ---
Documentation Clarification Form Date: 10/25/18 From: Maia Crain Phone: If you have a question regarding this query, please contact Nurys Velasquez at [phone] between 8am and 5pm. Admit Date: 10/19/2018 8:36:00 AM Patient Name: Gume Loredo Visit Number: [id number] Discharge Date: 10/20/2018 10:23:00 AM ATTENTION: The Clinical Documentation Specialists (CDI) and [facility] Coding Staff appreciate your assistance in clarifying documentation. Please respond to the clarification below the line at the bottom and electronically sign. The CDI & [facility] Coding staff will review the response and follow-up if needed. Please note: Queries are made part of the Legal Health Record. If you have any questions, please contact the author of this message via ITS. Dr. Milo Humphreys CTA of the chest showed atelectasis consistent with congestive heart failure is documented in your 10/19 progress note and the discharge summary. History/Risk Factors: No history of hypertension, SVT Clinical Indicators: Ejection fraction 55 - 60%, borderline left ventricular hypertrophy VS/Pulse OX: T. 103, P. 126, R. 18, BP 128/68 BNP:10/18 - 1410, 10/19 1900 Echocardiogram Results: Borderline left ventricular hypertophy, ejection fraction 55-60% Chest CT: Pleural effusion and right lower lobe infiltrate and atelectasis consistent with congestive heart failure. Mild pericardial effusion. Treatment: IV Lasix 40mg Unable to Determine MTDD
== END 2018-10-20 10:23 | disposition home or self-care (01) | DRG 871 ==
LOC: EC 17:04 → 3NMEDONC 19:34 → 3SCARD 10-18 15:57 → OBSVTOIN 10-19 08:36
PROVIDERS: ADMIT Family Medicine; ATTEND Family Medicine
DX: A41.9 Sepsis, unspecified organism (principal); J18.9 Pneumonia, unspecified organism; J18.8 Other pneumonia, unspecified organism; I47.1 Supraventricular tachycardia; J98.11 Atelectasis; D64.9 Anemia, unspecified; J30.2 Other seasonal allergic rhinitis; R77.9 Abnormality of plasma protein, unspecified; I50.9 Heart failure, unspecified
CPT/HCPCS: 36415; 71046; 71275; 76604; 80048; 80053; 81001; 83605; 83880; 84443; 84484; 85025; 85379; 85610; 85730; 87040; 87086; 87449; 87502; 93005; 93306; 96365; 96366; 99284

== ENCOUNTER 2018-10-23 23:10 | Emergency (ER) | payer OTHER ==
[2018-10-23 23:20] VITALS: RESP 20
--- NOTE | 2018-10-24 00:38 | XR ---
EXAM: XR Chest, 2 Views CLINICAL HISTORY: ITS.REASON XR Reason: difficulty breathing TECHNIQUE: Frontal and lateral views of the chest. COMPARISON: Chest radiographs 8 28,019. FINDINGS: Lungs: Hypoinflated lungs. Pleural space: Blunting of the right costophrenic angle with probable small pleural effusion. No pneumothorax. Heart: Cardiomegaly. Mediastinum: Unremarkable. Bones/joints: Degenerative changes seen in the spine. IMPRESSION: Constellation of findings may represent heart failure with small right pleural effusion. Infection is not excluded.
[2018-10-24 00:57] LABS: Basophils % (A) 1 %; Eosinophils # (A) 0.2 k/uL (0-0.7); Eosinophils % (A) 2 %; HCT 40.4 % (39.0-53.0); HGB 13.4 gm/dL (13.0-17.5); Lymphocytes # (A) 1.8 k/uL (1.0-4.8); Lymphocytes % (A) 23 %; MCH 28.6 pg (25.0-35.0); MCHC 33.2 g/dL (31.0-37.0); MCV 86.1 fL (80.0-100.0); Mean Platelet Volume 6.7; Monocytes # (A) 0.5 k/uL (0-1.0); Monocytes % (A) 6 %; Neutrophils # (A) 5.1 k/uL (1.3-7.7); Neutrophils % (A) 67 %; Platelet Count 516 k/uL (150-450); RBC 4.69 m/uL (4.30-5.90); RDW 13.4 % (11.5-15.5); WBC 7.7 k/uL (3.8-10.6)
[2018-10-24 01:10] LABS: ALT 68 U/L (21-72); AST 39 U/L (17-59); African American GFR (CKD) >90 (>60 ml/min/1.73 sqM); Albumin 3.4 g/dL (3.5-5.0); Alkaline Phosphatase 115 U/L (38-126); Anion Gap 12 mmol/L; Blood Urea Nitrogen 12 mg/dL (9-20); Calcium 8.6 mg/dL (8.4-10.2); Carbon Dioxide 21 mmol/L (22-30); Chloride 108 mmol/L (98-107); Glucose 169 mg/dL (74-99); Potassium 4.1 mmol/L (3.5-5.1); Sodium 141 mmol/L (137-145); Total Bilirubin 0.2 mg/dL (0.2-1.3); Total Protein 6.9 g/dL (6.3-8.2)
[2018-10-24 01:18] LABS: Partial Thromboplastin Time 23.4 sec (22.0-30.0); Prothrombin Time 10.4 sec (9.0-12.0)
[2018-10-24 02:16] VITALS: BP 118/81; PULSE 73; TEMP 97.7
--- NOTE | 2018-10-24 02:24 | ED ---
General Adult HPI - General Chief complaint: Recheck/Abnormal Lab/Rx Stated complaint: Low BP, SOB Time Seen by Provider: 10/23/18 23:50 Source: patient Mode of arrival: wheelchair Limitations: language barrier - History of Present Illness Initial comments: 63-year-old male patient who had recent admission for pneumonia and tachycardia presents to the emergency department today for evaluation of fatigue, shortness of breath, and low blood pressure. Patient was discharged on 10/20/2018 with prescriptions for Levaquin and metoprolol. Patient states he has been taking medications as directed. States today he had an episode of shortness of breath. States he's been very fatigued and sleeping over the last couple of days. States that when he checked his blood pressure was 94/55. They brought him here for further evaluation. Patient currently reports feeling tired but no other symptoms. Denies any current chest pain, cough, fever, or chills. Denies any dizziness or weakness. Patient denies any recent rash, abdominal pain, nausea, vomiting, diarrhea, constipation, back pain, numbness, tingling, hematuria, dysuria, urinary urgency, urinary frequency, headache, visual changes, or any other complaints. - Related Data Home Medications Medication Instructions Recorded Confirmed Benzonatate [Tessalon Perles] 100 mg PO TID PRN 10/17/18 10/23/18 Previous Rx's Medication Instructions Recorded Levofloxacin [Levaquin] 750 mg PO DAILY #5 tab 10/20/18 Metoprolol Tartrate [Lopressor] 25 mg PO BID #60 tab 10/20/18 Allergies Allergy/AdvReac Type Severity Reaction Status Date / Time No Known Allergies Allergy Verified 10/17/18 20:07 Review of Systems ROS Statement: Those systems with pertinent positive or pertinent negative responses have been documented in the HPI. ROS Other: All systems not noted in ROS Statement are negative. Past Medical History Past Medical History: No Reported History, Pneumonia History of Any Multi-Drug Resistant Organisms: None Reported Past Surgical History: No Surgical Hx Reported Additional Past Surgical History / Comment(s): colonscopy Past Anesthesia/Blood Transfusion Reactions: No Reported Reaction Past Psychological History: No Psychological Hx Reported Smoking Status: Never smoker Past Alcohol Use History: Occasional Past Drug Use History: None Reported - Past Family History Family Family Medical History: No Reported History (No history of CAD no sick contact) General Exam Limitations: language barrier General appearance: alert, in no apparent distress, other (This is a well- developed, well-nourished adult male patient in no acute distress. Vital signs upon presentation are temperature 98.1F, pulse 79, respirations 20, blood pressure 118/72, pulse ox 97% on room air.) Eye exam: Present: normal appearance, PERRL, EOMI. Absent: scleral icterus, conjunctival injection, periorbital swelling ENT exam: Present: normal exam, normal oropharynx, mucous membranes moist Respiratory exam: Present: normal lung sounds bilaterally. Absent: respiratory distress, wheezes, rales, rhonchi, stridor Cardiovascular Exam: Present: regular rate, normal rhythm, normal heart sounds. Absent: systolic murmur, diastolic murmur, rubs, gallop, clicks GI/Abdominal exam: Present: soft, normal bowel sounds. Absent: distended, tenderness, guarding, rebound, rigid Neurological exam: Present: alert, oriented X3, CN II-XII intact Psychiatric exam: Present: normal affect, normal mood Skin exam: Present: warm, dry, intact, normal color. Absent: rash Course Vital Signs 10/23/18 10/24/18 23:15 02:16 Temperature 98.1 F 97.7 F Pulse Rate 79 73 Respiratory 20 20 Rate Blood Pressure 118/72 118/81 O2 Sat by Pulse 97 96 Oximetry EKG Findings - EKG Comments: EKG Findings:: EKG obtained at nd to 33 shows normal sinus rhythm with a prolo nged QT interval. Ventricular rate is 71, AL interval is 142, QRS duration 88, QT 428, QTC 465. No evidence of ST elevation or depression. Medical Decision Making - Medical Decision Making 63-year-old male patient presented to the emergency department today for evaluation after having an episode of shortness of breath, low blood pressure, and fatigue at home. Physical examination is unremarkable. Lungs are clear to auscultation except for being diminished in the right lower lobe. Labs reviewed and did reveal a lactic acid 2.3. Normal white blood cell, 30 is afebrile. Troponin negative. Chest x-ray did show evidence or pleural effusion. Patient's vital signs in the emergency department are stable. Patient was recently started on metoprolol 25 mg twice daily, and is felt that this is the cause of his fatigue and low blood pressure. Upon reevaluation patient states he is feeling well. They're urged to call and discuss dosage of the metoprolol with the adjunct psychology instructor in the morning. They have an appointment with the adjunct psychology instructor on . He'll be discharged home with his primary care physician for recheck in 1-2 days. Return parameters were discussed in detail. He verbalizes understanding and agrees this plan. - Lab Data Result diagrams: 10/24/18 00:37 10/24/18 00:37 Lab Results 10/24/18 10/24/18 10/24/18 Range/Units 00:37 00:37 00:37 WBC 7.7 (3.8-10.6) k/uL RBC 4.69 (4.30-5.90) m/uL Hgb 13.4 (13.0-17.5) gm/dL Hct 40.4 (39.0-53.0) % MCV 86.1 (80.0-100.0) fL MCH 28.6 (25.0-35.0) pg MCHC 33.2 (31.0-37.0) g/dL RDW 13.4 (11.5-15.5) % Plt Count 516 H (150-450) k/uL Neutrophils % 67 % Lymphocytes % 23 % Monocytes % 6 % Eosinophils % 2 % Basophils % 1 % Neutrophils # 5.1 (1.3-7.7) k/uL Lymphocytes # 1.8 (1.0-4.8) k/uL Monocytes # 0.5 (0-1.0) k/uL Eosinophils # 0.2 (0-0.7) k/uL Basophils # 0.0 (0-0.2) k/uL PT (9.0-12.0) sec INR (<1.2) APTT (22.0-30.0) sec Sodium 141 (137-145) mmol/L Potassium 4.1 (3.5-5.1) mmol/L Chloride 108 H (98-107) mmol/L Carbon Dioxide 21 L (22-30) mmol/L Anion Gap 12 mmol/L BUN 12 (9-20) mg/dL Creatinine 0.72 (0.66-1.25) mg/dL Est GFR (CKD-EPI)AfAm >90 (>60 ml/min/1.73 sqM) Est GFR (CKD-EPI)NonAf >90 (>60 ml/min/1.73 sqM) Glucose 169 H (74-99) mg/dL Plasma Lactic Acid Ed 2.3 H* (0.7-2.0) mmol/L Calcium 8.6 (8.4-10.2) mg/dL Total Bilirubin 0.2 (0.2-1.3) mg/dL AST 39 (17-59) U/L ALT 68 (21-72) U/L Alkaline Phosphatase 115 (38-126) U/L Troponin I (0.000-0.034) ng/mL Total Protein 6.9 (6.3-8.2) g/dL Albumin 3.4 L (3.5-5.0) g/dL 10/24/18 10/24/18 Range/Units 00:37 00:37 WBC (3.8-10.6) k/uL RBC (4.30-5.90) m/uL Hgb (13.0-17.5) gm/dL Hct (39.0-53.0) % MCV (80.0-100.0) fL MCH (25.0-35.0) pg MCHC (31.0-37.0) g/dL RDW (11.5-15.5) % Plt Count (150-450) k/uL Neutrophils % % Lymphocytes % % Monocytes % % Eosinophils % % Basophils % % Neutrophils # (1.3-7.7) k/uL Lymphocytes # (1.0-4.8) k/uL Monocytes # (0-1.0) k/uL Eosinophils # (0-0.7) k/uL Basophils # (0-0.2) k/uL PT 10.4 (9.0-12.0) sec INR 1.0 (<1.2) APTT 23.4 (22.0-30.0) sec Sodium (137-145) mmol/L Potassium (3.5-5.1) mmol/L Chloride (98-107) mmol/L Carbon Dioxide (22-30) mmol/L Anion Gap mmol/L BUN (9-20) mg/dL Creatinine (0.66-1.25) mg/dL Est GFR (CKD-EPI)AfAm (>60 ml/min/1.73 sqM) Est GFR (CKD-EPI)NonAf (>60 ml/min/1.73 sqM) Glucose (74-99) mg/dL Plasma Lactic Acid Ed (0.7-2.0) mmol/L Calcium (8.4-10.2) mg/dL Total Bilirubin (0.2-1.3) mg/dL AST (17-59) U/L ALT (21-72) U/L Alkaline Phosphatase (38-126) U/L Troponin I <0.012 (0.000-0.034) ng/mL Total Protein (6.3-8.2) g/dL Albumin (3.5-5.0) g/dL - Radiology Data Radiology results: report reviewed, image reviewed Two-view x-ray of the chest is obtained. Report was reviewed in its entirety. Impression by Dr. Ashford shows constellation of findings are present heart failure with small right pleural effusion. Infection is not excluded. Disposition Clinical Impression: Pleural effusion Disposition: HOME SELF-CARE Condition: Good Instructions (If sedation given, give patient instructions): Pleural Effusion (ED) Additional Instructions: Follow up with the primary care physician for recheck in 1-2 days. Follow up with your adjunct psychology instructor for re-evaluation as soon as possible. Return to the emergency department for any new, worsening, or concerning symptoms. Is patient prescribed a controlled substance at d/c from ED?: No Referrals: None,Stated [Primary Care Provider] - 1-2 days Time of Disposition: 02:23
== END 2018-10-24 02:43 | disposition home or self-care (01) ==
LOC: EC 23:10
DX: J90 Pleural effusion, not elsewhere classified (principal); R53.83 Other fatigue; R03.1 Nonspecific low blood-pressure reading; Z87.01 Personal history of pneumonia (recurrent)
CPT/HCPCS: 36415; 71046; 80053; 83605; 84484; 85025; 85610; 85730; 93005; 99285

== ENCOUNTER 2018-10-29 11:10 | Observation (INO) | payer OTHER ==
[2018-10-29] MEDS ORDERED: SODIUM CHLORIDE 0.9% 1,000 ML IV STA ×2 (11:54)
[2018-10-29 12:11] LABS: Basophils # (A) 0.1 k/uL (0-0.2); Basophils % (A) 1 %; Eosinophils # (A) 0.1 k/uL (0-0.7); Eosinophils % (A) 1 %; HCT 41.4 % (39.0-53.0); HGB 14.1 gm/dL (13.0-17.5); Lymphocytes # (A) 2.2 k/uL (1.0-4.8); Lymphocytes % (A) 26 %; MCH 28.9 pg (25.0-35.0); MCV 84.9 fL (80.0-100.0); Mean Platelet Volume 6.8; Monocytes # (A) 0.4 k/uL (0-1.0); Monocytes % (A) 5 %; Neutrophils # (A) 5.5 k/uL (1.3-7.7); Neutrophils % (A) 65 %; Platelet Count 393 k/uL (150-450); RBC 4.87 m/uL (4.30-5.90); RDW 13.8 % (11.5-15.5); WBC 8.5 k/uL (3.8-10.6)
--- NOTE | 2018-10-29 12:20 | CT ---
EXAMINATION TYPE: CT brain wo con DATE OF EXAM: 10/29/2018 HISTORY: dizziness headache CT DLP: 1093.4 mGycm. Automated Exposure Control for Dose Reduction was Utilized. TECHNIQUE: CT scan of the head is performed without contrast. COMPARISON: None. FINDINGS: There is no acute intracranial hemorrhage or midline shift identified. There is diffuse v entricular and sulcal prominence consistent with diffuse age-related cerebral atrophy. There is low- attenuation in the periventricular white matter consistent with chronic small vessel ischemic change. The globes are intact and the visualized sinuses are clear. No suspicious opacification mastoid a ir cells is present bilaterally. IMPRESSION: No acute intracranial hemorrhage or midline shift. There is mild diffuse age-related ce rebral atrophy and chronic small vessel ischemic change noted.
[2018-10-29 12:21] LABS: ALT 40 U/L (21-72); AST 30 U/L (17-59); African American GFR (CKD) >90 (>60 ml/min/1.73 sqM); Albumin 3.4 g/dL (3.5-5.0); Alkaline Phosphatase 92 U/L (38-126); Anion Gap 12 mmol/L; Blood Urea Nitrogen 12 mg/dL (9-20); Calcium 8.4 mg/dL (8.4-10.2); Carbon Dioxide 18 mmol/L (22-30); Chloride 110 mmol/L (98-107); Glucose 143 mg/dL (74-99); Magnesium 1.7 mg/dL (1.6-2.3); Potassium 4.4 mmol/L (3.5-5.1); Sodium 140 mmol/L (137-145); Total Bilirubin 0.5 mg/dL (0.2-1.3); Total Protein 6.9 g/dL (6.3-8.2)
--- NOTE | 2018-10-29 12:28 | ED ---
Weakness HPI <Ramiro Bonilla - Last Filed: 10/29/18 13:42> - General Source: patient, family, EMS, RN notes reviewed, old records reviewed Mode of arrival: EMS Limitations: no limitations <Natali Baker - Last Filed: 10/29/18 13:46> - General Chief complaint: Weakness Stated complaint: weakness Time Seen by Provider: 10/29/18 11:43 - History of Present Illness Initial comments: 63-year-old male presents emergency department today with a syncopal episode while exiting the shower. Patient was recently admitted for pneumonia and CHF. Patient reportedly has had improvement on his coughing after being discharged on Levaquin but continues to have some just generalized weakness dizziness. Patient states that he did have a headache yesterday and today. He did complain of some nausea yesterday. Patient states he has no chest pain at this time. He denies any fever. Patient just complains of generalized weakness fatigue and dizziness with going from sitting to standing. He was recently started on metropolol and did follow this traffic coordinator to continued him on these medications. (Natali Baker) - Related Data Previous Rx's Medication Instructions Recorded Metoprolol Tartrate [Lopressor] 25 mg PO BID #60 tab 10/20/18 Allergies Allergy/AdvReac Type Severity Reaction Status Date / Time No Known Allergies Allergy Verified 10/29/18 11:33 Review of Systems ROS Other: All systems not noted in ROS Statement are negative. <Ramiro Bonilla - Last Filed: 10/29/18 13:42> ROS Other: All systems not noted in ROS Statement are negative. <Natali Baker - Last Filed: 10/29/18 13:46> ROS Statement: Those systems with pertinent positive or pertinent negative responses have been documented in the HPI. Past Medical History Past Medical History: Heart Failure, Pneumonia History of Any Multi-Drug Resistant Organisms: None Reported Past Surgical History: No Surgical Hx Reported Additional Past Surgical History / Comment(s): colonscopy Past Anesthesia/Blood Transfusion Reactions: No Reported Reaction Past Psychological History: No Psychological Hx Reported Smoking Status: Never smoker Past Alcohol Use History: Rare Past Drug Use History: None Reported - Past Family History Family Family Medical History: No Reported History (No history of CAD no sick contact) <Natali Baker - Last Filed: 10/29/18 13:46> General Exam Limitations: no limitations General appearance: alert, in no apparent distress Head exam: Present: atraumatic Eye exam: Present: normal appearance, PERRL, EOMI. Absent: scleral icterus, conjunctival injection, periorbital swelling ENT exam: Present: normal exam, mucous membranes moist Neck exam: Present: normal inspection Respiratory exam: Present: normal lung sounds bilaterally. Absent: respiratory distress, wheezes, rales, rhonchi, stridor Cardiovascular Exam: Present: regular rate, normal rhythm, normal heart sounds. Absent: systolic murmur, diastolic murmur, rubs, gallop, clicks Extremities exam: Present: normal inspection, full ROM, normal capillary refill. Absent: tenderness, pedal edema, joint swelling, calf tenderness Back exam: Present: normal inspection Neurological exam: Present: alert Psychiatric exam: Present: normal affect, normal mood <Natali Baker - Last Filed: 10/29/18 13:46> - General Exam Comments Initial Comments: This is a 63-year-old male. Alert and oriented 3. Patient is on median, majority of history is from son who is translating for Patient. (Natali Baker) Course Vital Signs 10/29/18 10/29/18 10/29/18 11:11 11:23 13:00 Temperature 97.3 F L 97.3 F L Pulse Rate 71 71 78 Respiratory 16 16 16 Rate Blood Pressure 109/68 109/68 116/81 O2 Sat by Pulse 97 97 98 Oximetry Medical Decision Making - Lab Data Result diagrams: 10/29/18 11:35 10/29/18 11:35 <Ramiro Bonilla - Last Filed: 10/29/18 13:42> - Lab Data Result diagrams: 10/29/18 11:35 10/29/18 11:35 - Radiology Data Radiology results: report reviewed <Natali Baker - Last Filed: 10/29/18 13:46> - Medical Decision Making Case discussed with practitioner Natali. Chart reviewed. Results reviewed. Case also discussed with Dr. Wooten, who will admit his patient. (Ramiro Bonilla) 63-year-old male presents emergency Department after syncopal episode while getting out of the shower. Recently admitted for CHF and pneumonia. At this time Patient complains of generalized weakness also headache. A CT of the brain was reviewed and negative for any acute injury cranial process. Chest x-ray shows evidence of bilateral atelectasis or developing infiltrate. He was recently finishing his Levaquin for pneumonia. he does report the cough has been improving. Patient blood cultures completed. Will hold off on antibiotic coverage at this time. Patient labwork was reviewed and multiple unremarkable. He continues to feel weak dizzy and reevaluation. due to syncopal episode and clinical status will admit the Patient. Discussed the case with Dr. Bonilla. Discussed case with Dr. Wooten. (Natali Baker) - Lab Data Lab Results 10/29/18 10/29/18 10/29/18 Range/Units 11:35 11:35 11:35 WBC 8.5 (3.8-10.6) k/uL RBC 4.87 (4.30-5.90) m/uL Hgb 14.1 (13.0-17.5) gm/dL Hct 41.4 (39.0-53.0) % MCV 84.9 (80.0-100.0) fL MCH 28.9 (25.0-35.0) pg MCHC 34.0 (31.0-37.0) g/dL RDW 13.8 (11.5-15.5) % Plt Count 393 (150-450) k/uL Neutrophils % 65 % Lymphocytes % 26 % Monocytes % 5 % Eosinophils % 1 % Basophils % 1 % Neutrophils # 5.5 (1.3-7.7) k/uL Lymphocytes # 2.2 (1.0-4.8) k/uL Monocytes # 0.4 (0-1.0) k/uL Eosinophils # 0.1 (0-0.7) k/uL Basophils # 0.1 (0-0.2) k/uL PT (9.0-12.0) sec INR (<1.2) APTT (22.0-30.0) sec Sodium 140 (137-145) mmol/L Potassium 4.4 (3.5-5.1) mmol/L Chloride 110 H (98-107) mmol/L Carbon Dioxide 18 L (22-30) mmol/L Anion Gap 12 mmol/L BUN 12 (9-20) mg/dL Creatinine 0.73 (0.66-1.25) mg/dL Est GFR (CKD-EPI)AfAm >90 (>60 ml/min/1.73 sqM) Est GFR (CKD-EPI)NonAf >90 (>60 ml/min/1.73 sqM) Glucose 143 H (74-99) mg/dL Lactic Ac Sepsis Rflx Plasma Lactic Acid Ed (0.7-2.0) mmol/L Calcium 8.4 (8.4-10.2) mg/dL Magnesium 1.7 (1.6-2.3) mg/dL Total Bilirubin 0.5 (0.2-1.3) mg/dL AST 30 (17-59) U/L ALT 40 (21-72) U/L Alkaline Phosphatase 92 (38-126) U/L Troponin I (0.000-0.034) ng/mL NT-Pro-B Natriuret Pep pg/mL Total Protein 6.9 (6.3-8.2) g/dL Albumin 3.4 L (3.5-5.0) g/dL Blood Type A Positive Blood Type Recheck No Previous Record Bld Type Recheck Status CABO Indicated Antibody Screen NEGATIVE Spec Expiration Date 11/01/2018 - 233410/29/18 10/29/18 10/29/18 Range/Units 11:35 11:35 11:35 WBC (3.8-10.6) k/uL RBC (4.30-5.90) m/uL Hgb (13.0-17.5) gm/dL Hct (39.0-53.0) % MCV (80.0-100.0) fL MCH (25.0-35.0) pg MCHC (31.0-37.0) g/dL RDW (11.5-15.5) % Plt Count (150-450) k/uL Neutrophils % % Lymphocytes % % Monocytes % % Eosinophils % % Basophils % % Neutrophils # (1.3-7.7) k/uL Lymphocytes # (1.0-4.8) k/uL Monocytes # (0-1.0) k/uL Eosinophils # (0-0.7) k/uL Basophils # (0-0.2) k/uL PT 10.4 (9.0-12.0) sec INR 1.0 (<1.2) APTT 20.1 L (22.0-30.0) sec Sodium (137-145) mmol/L Potassium (3.5-5.1) mmol/L Chloride (98-107) mmol/L Carbon Dioxide (22-30) mmol/L Anion Gap mmol/L BUN (9-20) mg/dL Creatinine (0.66-1.25) mg/dL Est GFR (CKD-EPI)AfAm (>60 ml/min/1.73 sqM) Est GFR (CKD-EPI)NonAf (>60 ml/min/1.73 sqM) Glucose (74-99) mg/dL Lactic Ac Sepsis Rflx Plasma Lactic Acid Ed 2.3 H* (0.7-2.0) mmol/L Calcium (8.4-10.2) mg/dL Magnesium (1.6-2.3) mg/dL Total Bilirubin (0.2-1.3) mg/dL AST (17-59) U/L ALT (21-72) U/L Alkaline Phosphatase (38-126) U/L Troponin I <0.012 (0.000-0.034) ng/mL NT-Pro-B Natriuret Pep pg/mL Total Protein (6.3-8.2) g/dL Albumin (3.5-5.0) g/dL Blood Type Blood Type Recheck Bld Type Recheck Status Antibody Screen Spec Expiration Date 10/29/18 10/29/18 Range/Units 11:35 12:50 WBC (3.8-10.6) k/uL RBC (4.30-5.90) m/uL Hgb (13.0-17.5) gm/dL Hct (39.0-53.0) % MCV (80.0-100.0) fL MCH (25.0-35.0) pg MCHC (31.0-37.0) g/dL RDW (11.5-15.5) % Plt Count (150-450) k/uL Neutrophils % % Lymphocytes % % Monocytes % % Eosinophils % % Basophils % % Neutrophils # (1.3-7.7) k/uL Lymphocytes # (1.0-4.8) k/uL Monocytes # (0-1.0) k/uL Eosinophils # (0-0.7) k/uL Basophils # (0-0.2) k/uL PT (9.0-12.0) sec INR (<1.2) APTT (22.0-30.0) sec Sodium (137-145) mmol/L Potassium (3.5-5.1) mmol/L Chloride (98-107) mmol/L Carbon Dioxide (22-30) mmol/L Anion Gap mmol/L BUN (9-20) mg/dL Creatinine (0.66-1.25) mg/dL Est GFR (CKD-EPI)AfAm (>60 ml/min/1.73 sqM) Est GFR (CKD-EPI)NonAf (>60 ml/min/1.73 sqM) Glucose (74-99) mg/dL Lactic Ac Sepsis Rflx Y Plasma Lactic Acid Ed (0.7-2.0) mmol/L Calcium (8.4-10.2) mg/dL Magnesium (1.6-2.3) mg/dL Total Bilirubin (0.2-1.3) mg/dL AST (17-59) U/L ALT (21-72) U/L Alkaline Phosphatase (38-126) U/L Troponin I (0.000-0.034) ng/mL NT-Pro-B Natriuret Pep 214 pg/mL Total Protein (6.3-8.2) g/dL Albumin (3.5-5.0) g/dL Blood Type Blood Type Recheck Bld Type Recheck Status Antibody Screen Spec Expiration Date - Radiology Data Chest x-ray shows cardiomegaly with basilar atelectasis favored over early infiltrate. Correlate clinically. CT of the brain shows no acute intracranial hemorrhage or midline shift. Mild diffuse age-related cervical atrophy and chronic small vessel ischemic changes noted. (Natali Baker) Disposition <Ramiro Bonilla - Last Filed: 10/29/18 13:42> Is patient prescribed a controlled substance at d/c from ED?: No Time of Disposition: 13:46 <Natali Baker - Last Filed: 10/29/18 13:46> Clinical Impression: Syncope, Atelectasis, Generalized weakness Disposition: ADMITTED IP TO THIS HOSP Condition: Stable Referrals: Kosta Wooten MD [Primary Care Provider] - 1-2 days
--- NOTE | 2018-10-29 12:33 | XR ---
EXAMINATION TYPE: XR chest 2V DATE OF EXAM: 10/29/2018 COMPARISON: 10/24/2018 TECHNIQUE: PA and lateral views submitted. HISTORY: Syncope FINDINGS: The lungs are clear and there is no pneumothorax, pleural effusion, or focal pneumonia. Subsegmenta l changes at both lung bases. Heart is enlarged. Hypertrophic and degenerative change of the spine. N o overt failure. IMPRESSION: 1. Cardiomegaly with basilar atelectasis favored over early infiltrate, correlate clinically..
[2018-10-29 12:40] LABS: Prothrombin Time 10.4 sec (9.0-12.0)
[2018-10-29 12:44] LABS: Partial Thromboplastin Time 20.1 sec (22.0-30.0)
[2018-10-29] MEDS ORDERED: ACETAMINOPHEN TAB 500 MG TAB PO STA (13:08)
[2018-10-29] MEDS ORDERED: MORPHINE SULFATE 4 MG/ML SYRINGE IV PRN (13:46)
[2018-10-29] MEDS ORDERED: IBUPROFEN 400 MG TAB PO PRN (13:46)
[2018-10-29] MEDS ORDERED: NALOXONE 0.4 MG/ML 1 ML VIAL IV PRN (13:46)
[2018-10-29] MEDS ORDERED: ACETAMINOPHEN TAB 325 MG TAB PO PRN (13:46)
[2018-10-29] MEDS ORDERED: KETOROLAC 30 MG/ML 1 ML VIAL IVP PRN (13:46)
[2018-10-29] MEDS ORDERED: SODIUM CHLORIDE 0.9% 1,000 ML IV ONE (13:51)
[2018-10-29] MEDS: SODIUM CHLORIDE 0.9% 1,000 ML IV SCH ×2 (14:53→21:54)
--- NOTE | 2018-10-29 20:52 | HP ---
HISTORY AND PHYSICAL CHIEF COMPLAINT: Syncope. HISTORY OF PRESENT ILLNESS: This is another recent admission for this 63-year-old gentleman who does not speak Yi. It sounds like 3 or 4 weeks ago he had a cough and fever, came to the emergency room, was admitted and treated for 4 days and diagnosed with sepsis and pneumonia. During that time, he also had tachycardia. During that admission, he lost 10 pounds. The history is difficult to interpret as given by the son, but there may have been an element of fluid retention as well because he lost about 10 pounds in that 4 days and the family was told that he was "full of water." He has never had any heart disease, lung disease, etc. He has otherwise been healthy. He was sent home on metoprolol presumably for his pulse. The other day, his son took his blood pressure 90/47. He stated he had a little bit of chest pain the day before coming in, but then when he came in this time, he had a syncopal event where he became pale, diaphoretic, but had no seizures and did not completely pass out. He was not incontinent. In the emergency room, studies were unremarkable. Vital signs were normal. He is afebrile. REVIEW OF SYSTEMS: Is obtained from the son and he apparently has been very healthy and does not go to doctors. He has had no headaches, difficulty with vision, or hearing, seizures, chest pain, lung disease, shortness of breath, asthma, cough, hemoptysis, hypertension, murmurs, angina, infarctions, orthopnea, PND, abdominal pain, nausea, vomiting, hematemesis, melena, hematochezia, jaundice, hepatitis, hematuria, frequency, urgency, nocturia, renal failure, stones, diabetes, etc. Past medical history, family history and personal and social histories are apparently otherwise unremarkable and noncontributory. He is not allergic to any medication and he is only on levothyroxine and metoprolol 25 mg twice a day. PHYSICAL EXAM: Blood pressure is 109/68 with a pulse 71 and regular. Respirations 16. He is afebrile. Pulse ox 97. General appearance: He appeared to be well developed, well nourished, in no acute distress. Skin color is normal. Skin is warm, dry. Lymph nodes not enlarged. Head, ears, eyes, nose, mouth, and throat were normal. Neck veins are not distended. Thyroid is not enlarged. Chest is clear. Cardiac exam is normal and no murmurs or extra sounds. Abdomen is soft and nontender without visceromegaly or masses. Extremities: Normal. There is no edema. Neurologically he is intact. His laboratory studies are normal. IMPRESSION: 1. Syncope, likely due to hypotension due to metoprolol. 2. Recent episode of pneumonitis. 3. ? recent episode of congestive heart failure. PLAN: 1. Bed rest. 2. IV fluids. 3. Telemetry. 4. Gather up studies that were done during the last admission and his outpatient visit with Cardiology. Of interest would be echocardiogram, D-dimer, BNP, troponins, etc. 5. Carotid duplex imaging. 6. Consider neurology consult. 7. Stop metoprolol. MMODL / IJN: [id number] /
[2018-10-30] MEDS: SODIUM CHLORIDE 0.9% 1,000 ML IV SCH ×3 (05:43→21:51)
[2018-10-30 09:37] LABS: Appearance,Urine Clear (Clear); Bilirubin,Urine Negative (Negative); Blood,Urine Negative (Negative); Color,Urine Light Yellow; Glucose,Urine (UA) Negative (Negative); Ketones,Urine Negative (Negative); Leukocyte Esterase,Urine Negative (Negative); Nitrite,Urine Negative (Negative); PH, Urine 6.5 (5.0-8.0); Protein,Urine Negative (Negative); Specific Gravity,Urine 1.009 (1.001-1.035); Urobilinogen,Urine <2.0 mg/dL (<2.0)
--- NOTE | 2018-10-30 12:45 | US ---
EXAMINATION TYPE: US carotid duplex BILAT DATE OF EXAM: 10/30/2018 COMPARISON: NONE CLINICAL HISTORY: syncope. EXAM MEASUREMENTS: RIGHT: Peak Systolic Velocity (PSV) cm/sec ----- Right CCA: 60.1 ----- Right ICA: 73.5 ----- Right ECA: 95.6 ICA/CCA ratio: 1.2 RIGHT: End Diastole cm/sec ----- Right CCA: 12.1 ----- Right ICA: 12.6 ----- Right ECA: 0.0 LEFT: Peak Systolic Velocity (PSV) cm/sec ----- Left CCA: 90.1 ----- Left ICA: 73.2 ----- Left ECA: 60.7 ICA/CCA ratio: 0.8 LEFT: End Diastole cm/sec ----- Left CCA: 17.6 ----- Left ICA: 12.8 ----- Left ECA: 0.0 VERTEBRALS (direction of flow): Right Vertebral: Antegrade Left Vertebral: Antegrade Rhythm: Normal Mild plaque, no significant velocity elevations. IMPRESSION: Mild degree of grayscale atheromatous plaquing with no sonographically evident hemodynam ically significant stenosis within either visualized carotid arterial system. Criteria for Assigning % of Stenosis / Diameter reduction (Estimation based on the indirect measurements of the internal carotid artery velocities (ICA PSV). 1. Normal (no stenosis)=ICA PSV < 125 cm/s: ratio < 2.0: ICA EDV<40 cm/s. 2. Less than 50% stenosis=ICA PSV < 125 cm/s: ratio < 2.0: ICA EDV<40 cm/s. 3. 50 to 69% stenosis=ICA PSV of 125 to 230 cm/s: ration 2.0 ? 4.0: ICA EDV 40-100 cm/s. 4. Greater than 70% stenosis to near occlusion= ICA PSV > 230 cm/s: ratio > 4.0: ICA EDV > 100 cm/s. 5. Near occlusion= ICA PSV velocities may be low or undetectable: variable ratio and ICA EDV. 6. Total occlusion=unable to detect flow.
--- NOTE | 2018-10-30 12:52 | P.CRDCN ---
History of Present Illness History of present illness: This is a pleasant 63-year-old male with no significant past medical history. He is [place] and speaks limited Swedish. Information is obtained from his daughter over the phone as well as the medical record. He apparently was taking a shower this morning and feeling in his normal state of health upon coming out of the shower he became nauseated, diaphoretic and lightheaded. Per the daughter he passed out momentarily. There was positive loss of consciousness per his . This was very brief. Daughter arrived at home approximately 15 minutes later in her father was significantly diaphoretic had to change his clothes. Blood pressure checked at home was normal per the daughter as well as with EMS when they arrived. Emergency department blood pressure was 109/60 with a heart rate of 71. The patient denied having had any symptoms of chest discomfort, shortness of breath or palpitations. He is seen and examined resting comfortably in bed in no acute distress. He was recently admitted into the hospital on the end of September and diagnosed with pneumonia. At that time he was seen and evaluation by Dr. Camara secondary to sinus tachycardia and started on Lopressor 25 mg twice a day. Since being discharged home to the hospital he has noticed increased weakness and fatigue. EKG reveals sinus mechanism heart rate of 75, T-wave inversions noted anterolaterally. Compared to previous EKGs there was similar findings of an EKG on October 24 when he came to the hospital for shortness of breath and weakness however prior to that at the end of September multiple EKGs obtained on that admission revealed persistent sinus tach with upright T waves. Chest x-ray on admission reveals cardiomegaly with basilar atelectasis favored over early infiltrate. Laboratory data reviewed, WBC 8.5, hemoglobin 14.1, platelets 393, sodium 140, potassium 4.4, creatinine 0.73, lactic acid on admission 2. 3 repeat 1.3, magnesium 1.7, cardiac enzymes negative 1, proBNP 214. Current daily cardiac medications include Lopressor 25 mg twice a day. At the time of my exam: CONSTITUTIONAL: Denies fever. Denies chills. EYES: Denies blurred vision. Denies vision changes. Denies eye pain. EARS, NOSE, MOUTH & THROAT: Denies headache. Denies sore throat. Denies ear pain. CARDIOVASCULAR: Denies chest pain. Denies shortness of breath. Denies orthopnea. Denies PND. Denies palpitations. RESPIRATORY: Denies cough. GASTROINTESTINAL: Denies abdominal pain. Denies diarrhea. Denies constipation. Denies nausea. Denies vomiting. MUSCULOSKELETAL: Denies myalgias. INTEGUMENTARY: Denies pruitis. Denies rash. NEUROLOGIC: Denies numbness. Denies tingling. Denies weakness. PSYCHIATRIC: Denies anxiety. Denies depression. ENDOCRINE: Denies fatigue. Denies weight change. Denies polydipsia. Denies polyurina. GENITOURINARY: Denies burning, hematuria or urgency with micturation. HEMATOLOGIC: Denies history of anemia. Denies bleeding. Blood pressure 128/74 heart rate 75 afebrile maintaining oxygen saturation on room air. Orthostatic vital signs obtained are unremarkable GENERAL: This is a 63-year-old male in no apparent distress at the time of my examination. HEENT: Head is atraumatic, normocephalic. Pupils are equal, round. Sclerae anicteric. Conjunctivae are clear. Mucous membranes of the mouth are moist. Neck is supple. There is no jugular venous distention. No carotid bruit is heard. LUNGS: Clear to auscultation no wheezes, rales or rhonchi. No chest wall tenderness is noted on palpation or with deep breathing. HEART: Regular rate and rhythm without murmurs, rubs or gallops. S1 and S2 heard. ABDOMEN: Soft, nontender. Bowel sounds are heard. No organomegaly noted. EXTREMITIES: No evidence of peripheral edema and no calf tenderness noted. VASCULAR: Radial and dorsalis pedis pulses palpated, no evidence of clubbing. NEUROLOGIC: Patient is awake, alert and oriented x3. ASSESSMENT Syncope Lactic acidosis PLAN Check d-dimer and troponin. Obtain limited echo to assess LV function. Ongoing telemetry monitoring. NPO after midnight tonight for possible stress testing in the morning secondary to EKG changes and syncope depending on echo lab and echo findings. Further recommendations to follow. Thank you kindly for this consultation. Nurse Practitioner note has been reviewed, I agree with a documented findings and plan of care. Patient was seen and examined. Past Medical History Past Medical History: Heart Failure, Pneumonia Additional Past Medical History / Comment(s): Pt recently admitted to [facility] on 10/19/18 with sepsis, CAP, pleural effusions, CHF and sinus tachycardia. Pt recently has been having dental problems. History of Any Multi-Drug Resistant Organisms: None Reported Past Surgical History: No Surgical Hx Reported Additional Past Surgical History / Comment(s): Nasal/sinus surgery. Past Anesthesia/Blood Transfusion Reactions: No Reported Reaction Smoking Status: Never smoker - Past Family History Father Additional Family Medical History / Comment(s): Father at the age of 62 yrs from some sort of throat problem. Mother Family Medical History: No Reported History Additional Family Medical History / Comment(s): Mother is healthy. Family Family Medical History: No Reported History Medications and Allergies Home Medications Medication Instructions Recorded Confirmed Type Metoprolol Tartrate [Lopressor] 25 mg PO BID #60 tab 10/20/18 10/29/18 Rx Allergies Allergy/AdvReac Type Severity Reaction Status Date / Time No Known Allergies Allergy Verified 10/29/18 11:33 Physical Exam Vitals: Vital Signs Temp Pulse Pulse Resp BP BP BP 10/30/18 04:53 98.5 F 75 16 128/74 10/29/18 23:06 18 10/29/18 20:51 97.8 F 80 18 110/67 10/29/18 19:03 98.7 F 88 16 117/70 10/29/18 18:05 97.6 F 85 16 122/73 10/29/18 17:44 10/29/18 17:00 89 14 120/75 10/29/18 16:30 89 14 120/75 10/29/18 15:30 85 16 126/77 10/29/18 14:30 86 16 134/87 10/29/18 13:54 127/90 123/78 10/29/18 13:00 78 16 116/81 BP Pulse Ox 10/30/18 04:53 96 10/29/18 23:06 10/29/18 20:51 98 10/29/18 19:03 98 10/29/18 18:05 98 10/29/18 17:44 97 10/29/18 17:00 97 10/29/18 16:30 97 10/29/18 15:30 97 10/29/18 14:30 98 10/29/18 13:54 129/83 10/29/18 13:00 98 Intake and Output 10/29/18 10/30/18 10/30/18 22:59 06:59 14:59 Intake Total 504 1008 Balance 504 1008 Intake: Intake, IV Titration 504 1008 Amount Sodium Chloride 0.9% 1, 504 1008 000 ml @ 126 mls/hr IV . Q7H57M [facility] Rx#:[id number] Other: Voiding Method Toilet Urinal Weight 78.5 kg Results 10/29/18 11:35 10/29/18 11:35 Cardiac Enzymes 10/29/18 10/29/18 Range/Units 11:35 11:35 AST 30 (17-59) U/L Troponin I <0.012 (0.000-0.034) ng/mL Coagulation 10/29/18 Range/Units 11:35 PT 10.4 (9.0-12.0) sec APTT 20.1 L (22.0-30.0) sec CBC 10/29/18 Range/Units 11:35 WBC 8.5 (3.8-10.6) k/uL RBC 4.87 (4.30-5.90) m/uL Hgb 14.1 (13.0-17.5) gm/dL Hct 41.4 (39.0-53.0) % Plt Count 393 (150-450) k/uL Comprehensive Metabolic Panel 10/29/18 Range/Units 11:35 Sodium 140 (137-145) mmol/L Potassium 4.4 (3.5-5.1) mmol/L Chloride 110 H (98-107) mmol/L Carbon Dioxide 18 L (22-30) mmol/L BUN 12 (9-20) mg/dL Creatinine 0.73 (0.66-1.25) mg/dL Glucose 143 H (74-99) mg/dL Calcium 8.4 (8.4-10.2) mg/dL AST 30 (17-59) U/L ALT 40 (21-72) U/L Alkaline Phosphatase 92 (38-126) U/L Total Protein 6.9 (6.3-8.2) g/dL Albumin 3.4 L (3.5-5.0) g/dL Current Medications Generic Name Dose Route Start Last Admin Trade Name Freq PRN Reason Stop Dose Admin Acetaminophen 650 mg 10/29/18 13:46 Tylenol Tab PO Q6HR PRN Mild Pain or Fever > 100.5 Sodium Chloride 1,000 mls @ 126 mls/hr 10/29/18 14:00 10/30/18 05:43 Saline 0.9% IV 126 mls/hr .Q7H57M ANNIKA Administration Ibuprofen 400 mg 10/29/18 13:46 Motrin PO Q6HR PRN Mild Pain or Fever > 100.5 Ketorolac Tromethamine 30 mg 10/29/18 13:46 Toradol IVP 11/03/18 13:47 Q6HR PRN Moderate Pain Morphine Sulfate 4 mg 10/29/18 13:46 Morphine Sulfate (Inj) IV Q4HR PRN Severe Pain Naloxone HCl 0.2 mg 10/29/18 13:46 Narcan IV Q2M PRN Opioid Reversal Intake and Output 10/29/18 10/30/18 10/30/18 22:59 06:59 14:59 Intake Total 504 1008 Balance 504 1008 Intake: Intake, IV Titration 504 1008 Amount Sodium Chloride 0.9% 1, 504 1008 000 ml @ 126 mls/hr IV . Q7H57M [facility] Rx#:[id number] Other: Voiding Method Toilet Urinal Weight 78.5 kg 10/29/18 11:35 10/29/18 11:35
--- NOTE | 2018-10-30 15:34 | CT ---
EXAMINATION TYPE: CT angio chest DATE OF EXAM: 10/30/2018 COMPARISON: CTA chest less than 2 weeks ago. HISTORY: Elevated d-dimer syncope and weakness. CT DLP: 507 mGycm. Automated Exposure Control for Dose Reduction was Utilized. CONTRAST: CTA scan of the thorax is performed with IV Contrast, patient injected with 80 mL of Isovue 370, pulm onary embolism protocol. MIP Images are created on CT scanner and reviewed. FINDINGS: LUNGS: Elevated right hemidiaphragm redemonstrated. Interval improvement in respiratory motion artifa ct degradation on current study. Interval improvement in small bilateral pleural effusions. Perhaps t race residual effusions. Right basilar atelectasis and/or consolidation just above the diaphragm. Add itional left basilar linear scarring and/or atelectasis. No new masses. No pneumothorax. MEDIASTINUM: There is satisfactory enhancement of the pulmonary artery and its branches, there is no CT evidence for pulmonary embolism. Main pulmonary artery measures 2.6 cm in diameter axial image 5 3. Adjacent ascending aorta measures 3.6 cm in diameter. There are no greater than 1 cm hilar or medi astinal lymph nodes. Cardiomegaly redemonstrated. Small pericardial effusion seen improved from prior . OTHER: Moderate multilevel spurring in the thoracic spine. IMPRESSION: No CT evidence for acute pulmonary embolism. Improved pleural and pericardial effusions.
--- NOTE | 2018-10-30 18:04 | PN ---
PROGRESS NOTE CHIEF COMPLAINT: Syncopal episode. HISTORY OF PRESENT ILLNESS: This gentleman is doing fine today. Vital signs are normal. He has had no chest pain, syncope, shortness of breath, cough, hemoptysis, fever, chills, etc. PHYSICAL EXAMINATION: His chest is clear. Cardiac exam is normal. Abdomen is soft, nontender. Carotids are normal. Neurologically he is intact. IMPRESSION: 1. Syncopal episode, etiology unknown. 2. ? congestive heart failure. 3. ? cardiomyopathy. PLAN: 1. Cardiology consult. 2. Carotid duplex imaging. 3. EEG. 4. Withhold metoprolol. MMODL / IJN: [id number] /
[2018-10-30] MEDS ORDERED: METOPROLOL TARTRATE 12.5 MG TAB PO SCH (21:00)
--- NOTE | 2018-10-30 21:28 | P.CNNES ---
History of Present Illness Consult date: 10/30/18 Reason for Consult: Syncope Chief complaint: Syncopal episode while exiting the shower. History of Present Illness: REFERRING PHYSICIAN: Dr. Kosta Wooten HISTORY OF PRESENT ILLNESS: Thank you for allowing me to evaluate Mr. Gume Loredo. Mr. Loredo is a 63 year-old man with PMhx of recent diagnosis of heart failure and pneumonia, presenting with an episode of syncopal-like episode. Patient is Macedonian-speaking only, spoke to daughter Sabina over the phone along with the patient. Patient states that he had finished taking a shower, was exiting the shower, when he suddenly felt generalized weakness and fell. Daughter doesn't believe that he hit his head anywhere. Patient lost consciousness for a short period, but daughter and patient cannot tell specifically how long as the daughter came after patient had already come back to baseline . Patient did not have any tongue biting, urinary/bowel incontinence, or abnormal movements. Patient states that he kept his eyes shut the entire time, even until he came to the hospital as he did not want to see what was going on. Patient felt nauseated and lightheaded prior to the event. Patient has never had similar episodes in the past. Other than being admitted for pneumonia and later diagnosed with heart failure a couple of weeks ago, patient denies any recent sickness, fever, nausea, vomiting, headache, numbness, tingling, diarrhea or constipation. PAST MEDICAL HISTORY: Heart failure, pneumonia PAST SURGICAL HISTORY: None HOME MEDICATIONS: Metoprolol 25 mg twice a day ALLERGIES: No known ALLERGIES SOCIAL HISTORY: Never smoker. Social drinker. REVIEW OF SYSTEMS: The 14 systems are reviewed and no additional points are identified compared to the review of systems documented history and physical PHYSICAL EXAMINATION: VITAL SIGNS: T 90 8.5HR 70 5RR 16 blood pressure 128/74 O2 saturation 96% on room air GEN.: NAD, pleasant and cooperative HEENT: NCAT, sclera without icterus NECK: Supple SKIN AND EXTREMITIES: Warm to touch, no edema NEURO: MENTAL STATUS: Patient alert and oriented to self, place, time. Speech fluent per daughter. No right and left disorientation or neglect. CRANIAL NERVES II THROUGH XII: II: Pupils are equal and reactive to light symmetrically. No afferent pupillary defect. Visual rosales are intact. III, IV, : No ptosis. Extraocular movements full. No nystagmus. V: Facial sensation intact from V1-3. VII. No clear facial asymmetry. VIII: Hearing intact to finger rub bilaterally. IX, X: Symmetric palate elevation. XI: Shoulder shrug intact. XII: Tongue midline without fasciculation or atrophy. MOTOR: Normal bulk/tone. No pronator drift or tremor. Strength is 5/5 throughout all 4 extremities. SENSORY: Intact to light touch, temperature, pinprick in all 4 extremities. Romberg is negative. REFLEXES: 2+ throughout. Toes are downgoing. COORDINATION: Finger to nose intact. No dysmetria. GAIT: Narrow-based and stable. Able to toe/heel/tandem walk DIAGNOSTIC TESTING: LABORATORY: WBC 8.5 hemoglobin 14.1 platelet 393 PT 10.4 INR 1.0 sodium 140 potassium 4.4 chloride 110 bicarb 18 BUN 1220 0.73 glucose 143 optic acid 2.3 AST 30 ALT 40 alk phos 92 urinalysis IMAGING: CT Head without contrast 10/29/2018: No acute intracranial hemorrhage or midline shift. There is mild diffuse age- related cerebral atrophy and chronic small vessel ischemic changes noted. ASSESSMENT: Mr. Loredo is a 63 year-old man with PMhx of recent diagnosis of heart failure and pneumonia, presenting with an episode of syncopal-like episode. Patient with prodromal symptoms of feeling lightheaded and nauseated prior to the episode. No tongue-biting, urinary/bowel incontinence, or abnormal rhythmic movements during event. Less likely a seizure episode but cannot rule it out either. RECOMMENDATIONS: 1. Routine EEG 2. If EEG with no seizure, Neurology will sign off. Please feel free to call with additional questions or concerns. Past Medical History Past Medical History: Heart Failure, Pneumonia Additional Past Medical History / Comment(s): Pt recently admitted to [facility] on 10/19/18 with sepsis, CAP, pleural effusions, CHF and sinus tachycardia. Pt recently has been having dental problems. History of Any Multi-Drug Resistant Organisms: None Reported Past Surgical History: No Surgical Hx Reported Additional Past Surgical History / Comment(s): Nasal/sinus surgery. Past Anesthesia/Blood Transfusion Reactions: No Reported Reaction Smoking Status: Never smoker - Past Family History Father Additional Family Medical History / Comment(s): Father at the age of 62 yrs from some sort of throat problem. Mother Family Medical History: No Reported History Additional Family Medical History / Comment(s): Mother is healthy. Family Family Medical History: No Reported History Medications and Allergies Home Medications Medication Instructions Recorded Confirmed Type Metoprolol Tartrate [Lopressor] 25 mg PO BID #60 tab 10/20/18 10/29/18 Rx Allergies Allergy/AdvReac Type Severity Reaction Status Date / Time No Known Allergies Allergy Verified 10/29/18 11:33 Physical Examination - Vital Signs Vital Signs: Vital Signs Temp Pulse Pulse Resp BP BP BP 10/30/18 04:53 98.5 F 75 16 128/74 10/29/18 23:06 18 10/29/18 20:51 97.8 F 80 18 110/67 10/29/18 19:03 98.7 F 88 16 117/70 10/29/18 18:05 97.6 F 85 16 122/73 10/29/18 17:44 10/29/18 17:00 89 14 120/75 10/29/18 16:30 89 14 120/75 10/29/18 15:30 85 16 126/77 10/29/18 14:30 86 16 134/87 10/29/18 13:54 127/90 123/78 10/29/18 13:00 78 16 116/81 10/29/18 11:23 97.3 F L 71 16 109/68 BP Pulse Ox 10/30/18 04:53 96 10/29/18 23:06 10/29/18 20:51 98 10/29/18 19:03 98 10/29/18 18:05 98 10/29/18 17:44 97 10/29/18 17:00 97 10/29/18 16:30 97 10/29/18 15:30 97 10/29/18 14:30 98 10/29/18 13:54 129/83 10/29/18 13:00 98 10/29/18 11:23 97 Intake and Output 10/29/18 10/30/18 10/30/18 22:59 06:59 14:59 Intake Total 504 1008 Balance 504 1008 Intake: Intake, IV Titration 504 1008 Amount Sodium Chloride 0.9% 1, 504 1008 000 ml @ 126 mls/hr IV . Q7H57M [facility] Rx#:[id number] Other: Voiding Method Toilet Urinal Weight 78.5 kg Results - Laboratory Findings CBC and BMP: 10/29/18 11:35 10/29/18 11:35 Abnormal Lab Findings: Abnormal Labs 10/29/18 10/29/18 10/29/18 11:35 11:35 11:35 APTT 20.1 L Chloride 110 H Carbon Dioxide 18 L Glucose 143 H Plasma Lactic Acid Ed 2.3 H* Albumin 3.4 L
[2018-10-31] MEDS: SODIUM CHLORIDE 0.9% 1,000 ML IV SCH (05:35)
--- NOTE | 2018-10-31 09:49 | P.PN ---
Subjective This is a pleasant 63-year-old male with no significant past medical history. He has no documented history or incidence of heart failure. He is seen and examined laying flat in bed in no acute distress. His daughter is at the bedside. He has had no chest pain, shortness of breath, dizziness or palpitations in the previous 24 hrs. Telemetry tracings reveal persistent sinus mechanism with an episode of atrial tachycardia last evening. No justin- arrhythmia noted. Lopressor has been stopped by the PCP. Blood pressure 122/70 heart rate 78 afebrile and maintaining oxygen saturation on room air. Labs from previous admission 10/19 reviewed. TSH was 1.25. D-dimer 4.8, CTA negative for PE. Cardiac enzymes negative x3. Neurology is recommending an EEG. GENERAL: This is a 63-year-old male in no apparent distress at the time of my examination. HEENT: Head is atraumatic, normocephalic. Pupils are equal, round. Sclerae anicteric. Conjunctivae are clear. Mucous membranes of the mouth are moist. Neck is supple. There is no jugular venous distention. No carotid bruit is heard. LUNGS: Clear to auscultation no wheezes, rales or rhonchi. No chest wall tenderness is noted on palpation or with deep breathing. HEART: Regular rate and rhythm without murmurs, rubs or gallops. S1 and S2 heard. EXTREMITIES: No evidence of peripheral edema and no calf tenderness noted. ASSESSMENT Syncope, suggestive of a vasovagal spell after taking a hot shower likely from drop in blood pressure. Lactic acidosis, resolved. PLAN Proceed with cardiolyte stress test to assess for reversible cardiac ischemia. Nurse Practitioner note has been reviewed, I agree with a documented findings and plan of care. Patient was seen and examined. Objective - Vital Signs Vital signs: Vital Signs Temp 98.5 F 10/31/18 04:53 Pulse 78 10/31/18 04:53 Resp 18 10/31/18 04:53 BP 122/70 10/31/18 04:53 Pulse Ox 95 10/31/18 04:53 Intake & Output 10/30/18 10/31/18 10/31/18 18:59 06:59 18:59 Intake Total 2361 2057 Balance 2361 2057 Weight 78.5 kg Intake: Intake, IV Titration 1512 1578 Amount Sodium Chloride 0.9% 1, 1512 1578 000 ml @ 126 mls/hr IV . Q7H57M [facility] Rx#:[id number] Oral 850 480 Other: Voiding Method Toilet Toilet Urinal Urinal # Voids 3 1 - Labs CBC & Chem 7: 10/29/18 11:35 10/29/18 11:35 Labs: Abnormal Lab Results - Last 24 Hours (Table) 10/30/18 Range/Units 12:21 D-Dimer 4.80 H (<0.60) mg/L FEU Microbiology - Last 24 Hours (Table) 10/29/18 14:15 Blood Culture - Preliminary Blood No Growth after 24 hours
[2018-10-31 12:00] VITALS: BP 134/87; PULSE 84; RESP 17; TEMP 97.2
--- NOTE | 2018-10-31 13:20 | NM ---
EXAMINATION TYPE: NM stress cardiolite complete DATE OF EXAM: 10/31/2018 COMPARISON: NONE HISTORY: Abnormal EKG, syncope TECHNIQUE: After the intravenous administration of 10.12 mCi Tc 99m Sestamibi - Rest images obtained 45 minutes post injection. The patient exercised using a JARED protocol and 1 minute prior to peak exercise was injected with 25.9 mCi Tc 99m Sestamibi - Stress images obtained 10 minutes post inject ion. FINDINGS: Targeted heart rate was achieved during performance of the study. Review of stress and rest SPECT desire ges demonstrates no distinct perfusion abnormality. Gated analysis shows normal wall motion with an estimated left ventricular ejection fraction of 63 %. IMPRESSION: No scintigraphic evidence for reversible ischemia, cardiac ejection fraction calculated at 63%
--- NOTE | 2018-10-31 17:00 | ECHOF ---
Referral Reason:lv function, ekg changes and syncope MEASUREMENTS -------- HEIGHT: 167.6 cm WEIGHT: 78.5 kg BP: 128/74 IVSd: 1.4 cm (0.6 - 1.1) LVIDd: 4.2 cm (3.9 - 5.3) LVPWd: 1.2 cm (0.6 - 1.1) IVSs: 1.4 cm LVIDs: 3.1 cm LVPWs: 1.5 cm LAESV Index (A-L): 25.30 ml/m RAP: 5.00 mmHg RVSP: 23.68 mmHg FINDINGS -------- Sinus rhythm. limited study The left ventricular size is normal. There is mild concentric left ventricular hypertrophy. Overa ll left ventricular systolic function is low-normal with, an EF between 50 - 55 %. Left atrium is normal size by volume. Interatrial and interventricular septum intact. The aortic valve is trileaflet and appears structurally normal. There is no evidence of aortic regu rgitation. There is no evidence of aortic stenosis. There is trace mitral regurgitation. Mild tricuspid regurgitation present. There is no evidence of pulmonary hypertension. The right v entricular systolic pressure, as measured by Doppler, is 23.68mmHg. There is no pericardial effusion. CONCLUSIONS -------- 1. Sinus rhythm. 2. limited study 3. The left ventricular size is normal. 4. There is mild concentric left ventricular hypertrophy. 5. Overall left ventricular systolic function is low-normal with, an EF between 50 - 55 %. 6. Left atrium is normal size by volume. 7. Interatrial and interventricular septum intact. 8. The aortic valve is trileaflet and appears structurally normal. 9. There is no evidence of aortic regurgitation. 10. There is no evidence of aortic stenosis. 11. There is trace mitral regurgitation. 12. Mild tricuspid regurgitation present. 13. There is no evidence of pulmonary hypertension. 14. The right ventricular systolic pressure, as measured by Doppler, is 23.68mmHg. 15. There is no pericardial effusion. ATHLETIC SHOE DESIGNER: Nicki Rhoades, [facility]
--- NOTE | 2018-10-31 18:10 | EST ---
EXERCISE STRESS AGE: 63 SEX: Male. HT: 66" WT: 173 pounds PROTOCOL: Cardiolite Curtis STAGE: 3 DURATION OF EXERCISE: 8:01 HEART RATE REST: 79 BLOOD PRESSURE REST: 150/84 MAXIMUM HEART RATE ACHIEVED: 136 MAXIMUM BLOOD PRESSURE: 200/101 85% MPHR: 133 100% MPHR: 151 METS: 8.9 INDICATIONS: EKG changes. CLINICAL INFORMATION: STRESS DATA: Heart rate is 79, pressure 150/84 mmHg. Baseline EKG showed sinus mechanism. The patient exercised on the treadmill according to Curtis protocol for a total of 8 minutes and achieved 8.9 METS. Maximum heart rate was 136, which is about 90% of maximum predicted heart rate. Maximum blood pressure was 200/101 mmHg. Clinically the patient did not have any symptoms of chest pain or chest discomfort. The EKG showed about 1 mm horizontal and downsloping ST-segment changes, which was on baseline. CONCLUSION: 1. Excellent exercise tolerance. 2. Mild EKG changes in response to exercise. 3. Please follow up on the Cardiolite portion in a separate report from Radiology Department. MMODL / IJN: [id number] /
--- NOTE | 2018-10-31 23:31 | EEG ---
ELECTROENCEPHALOGRAM REPORT DATE OF PROCEDURE: 10/31/2018. ELECTROENCEPHALOGRAM (EEG) REPORT: TECHNIQUE: A routine 18-channel EEG was performed with video using the 10/20 electrode placement system. HISTORY: Syncopal episode. CURRENT MEDICATIONS: 1. Morphine. 2. Toradol. 3. Motrin. 4. Tylenol. STUDY DURATION: 22 minutes. FINDINGS: BACKGROUND: The background activity consisted of 8-9 Hz rhythmic waveforms symmetric through both posterior quadrants. ACTIVATION: Hyperventilation: Not performed. Photic stimulation: Symmetric driving seen. Sleep: Stages I and II sleep noted. ABNORMALITIES: None. Please note that one channel of this EEG was dedicated to EKG. It demonstrated a sinus rhythm. IMPRESSION: Normal EEG. No epileptiform activity was present. No seizures were recorded. MMODL / IJN: [id number] /
--- NOTE | 2018-11-01 05:58 | DS ---
DISCHARGE SUMMARY CHIEF COMPLAINT: Syncopal spell. HISTORY OF PRESENT ILLNESS AND PHYSICAL EXAM: Details of this man's history and physical can be found in the initial workup. LABORATORY STUDIES: While he was in a hospital he had laboratory studies, details of which can be found in the laboratory section of his chart. COURSE IN THE HOSPITAL: After admission he was placed on bedrest, started on intravenous fluids and placed on telemetry. All of his studies were normal. His vital signs remained normal. He was seen by Cardiology and released and it was felt that he could go home. He will go home on the regular activity and diet. No medication. FINAL DIAGNOSIS: Syncopal episode secondary to iatrogenic hypotension. OPERATIONS: None. CONSULTATION: Cardiology. He is improved. MMODL / IJN: [id number] /
== END 2018-10-31 19:00 | disposition home or self-care (01) ==
LOC: EC 11:10 → 3NMEDONC 13:53
PROVIDERS: ADMIT Family Medicine; ATTEND Family Medicine
DX: I95.2 Hypotension due to drugs (principal); T44.7X5A Adverse effect of beta-adrenoreceptor antagonists, initial encounter; E87.2 Acidosis; I42.9 Cardiomyopathy, unspecified; I50.9 Heart failure, unspecified; I47.1 Supraventricular tachycardia; J98.11 Atelectasis; G31.9 Degenerative disease of nervous system, unspecified; R51 Headache; Z79.899 Other long term (current) drug therapy; Z87.01 Personal history of pneumonia (recurrent); Z86.19 Personal history of other infectious and parasitic diseases; W18.2XXA Fall in (into) shower or empty bathtub, initial encounter; Y93.E1 Activity, personal bathing and showering
CPT/HCPCS: 96361 ×3; 96360; 99285; 36415; 95816; 93005; 93308; 93017; 97165; 86900; 86901; 85379; 83880; 80053; 83605; 83735; 84484 ×2; 85025; 85610; 85730; 86850; 81003; 87040; 71046; 93880; 70450; 71275; 78452; G0378 ×3; A9500; Q9967

== ENCOUNTER 2020-04-15 22:19 | Observation (INO) | payer OTHER ==
[2020-04-15] MEDS ORDERED: SODIUM CHLORIDE 0.9% 1,000 ML IV STA (22:51)
[2020-04-15] MEDS ORDERED: ONDANSETRON 4 MG/2 ML VIAL IVP STA (22:51)
[2020-04-15] MEDS ORDERED: diphenhydrAMINE 50 MG/ML 1 ML VIAL IVP STA (22:51)
--- NOTE | 2020-04-15 22:52 | ED ---
Dizziness HPI - General Chief Complaint: Nausea/Vomiting/Diarrhea Stated Complaint: Dizziness Time Seen by Provider: 04/15/20 22:26 Source: patient, family, EMS, RN notes reviewed, old records reviewed Mode of arrival: EMS Limitations: no limitations - History of Present Illness Initial Comments: This is a 64-year-old male who is a poor historian secondary to communication and language difficulty. 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 Patient having sy mptoms of room spinning dizziness lightheadedness not feeling well. No real pain but has had a significant headache as of late. Patient was very dizzy will ambulate move, fell using a pass out and walk in the room was spinning around MD Complaint: dizziness, lightheadedness -: days(s) Timing: gradual onset Description: sense of movement, lightheadedness, off-balance, near-syncope History of Same: Yes History of Trauma: Yes Severity: moderate Improves With: nothing Worsens With: nothing Associated Symptoms: ataxia, weakness - Related Data Home Medications Medication Instructions Recorded Confirmed Atorvastatin Calcium [Lipitor] 80 mg PO HS 04/15/20 04/15/20 Allergies Allergy/AdvReac Type Severity Reaction Status Date / Time No Known Allergies Allergy Verified 04/15/20 22:29 Review of Systems ROS Statement: Those systems with pertinent positive or pertinent negative responses have been documented in the HPI. ROS Other: All systems not noted in ROS Statement are negative. Past Medical History Past Medical History: Heart Failure, Hyperlipidemia, Pneumonia Additional Past Medical History / Comment(s): Pt recently admitted to [facility] on 10/19/18 with sepsis, CAP, pleural effusions, CHF and sinus tachycardia. Pt recently has been having dental problems. History of Any Multi-Drug Resistant Organisms: None Reported Past Surgical History: No Surgical Hx Reported Additional Past Surgical History / Comment(s): Nasal/sinus surgery. Past Anesthesia/Blood Transfusion Reactions: No Reported Reaction Past Psychological History: No Psychological Hx Reported Smoking Status: Never smoker Past Alcohol Use History: Occasional Past Drug Use History: None Reported - Past Family History Father Additional Family Medical History / Comment(s): Father at the age of 62 yrs from some sort of throat problem. Mother Family Medical History: No Reported History Additional Family Medical History / Comment(s): Mother is healthy. Family Family Medical History: No Reported History General Exam Limitations: no limitations General appearance: alert, in no apparent distress Head exam: Present: atraumatic, normocephalic, normal inspection Eye exam: Present: normal appearance, PERRL, EOMI. Absent: scleral icterus, conjunctival injection, periorbital swelling ENT exam: Present: normal exam, mucous membranes moist Neck exam: Present: normal inspection. Absent: tenderness, meningismus, lymphadenopathy Respiratory exam: Present: normal lung sounds bilaterally. Absent: respiratory distress, wheezes, rales, rhonchi, stridor Cardiovascular Exam: Present: tachycardia, irregular rhythm, normal heart sounds. Absent: systolic murmur, diastolic murmur, rubs, gallop, clicks GI/Abdominal exam: Present: soft, normal bowel sounds. Absent: distended, tenderness, guarding, rebound, rigid Extremities exam: Present: normal inspection, full ROM, normal capillary refill. Absent: tenderness, pedal edema, joint swelling, calf tenderness Back exam: Present: normal inspection Neurological exam: Present: alert, oriented X3, CN II-XII intact Psychiatric exam: Present: normal affect, normal mood Skin exam: Present: warm, dry, intact, normal color. 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 ] Respiratory 22 24 Rate Blood Pressure 136/81 O2 Sat by Pulse 98 Oximetry 04/15/20 04/15/20 04/15/20 23:08 23:18 23:41 Temperature Pulse Rate 134 H 122 H Pulse Rate [ 134 H Evaporative [employer]er Installer ] Respiratory 22 22 Rate Blood Pressure 119/68 121/74 O2 Sat by Pulse 97 97 Oximetry 04/16/20 00:00 Temperature Pulse Rate 102 H Pulse Rate [ Evaporative [employer]er Installer ] Respiratory 20 Rate Blood Pressure 104/65 O2 Sat by Pulse 98 Oximetry - Reevaluation(s) Reevaluation #1: 04/15/20 23:52 Medical records reviewed Reevaluation #2: 04/16/20 00:24 Patient family, questions have been answered Reevaluation #3: 04/16/20 00:24 Heart rate is been difficult to control here in the ER - Consultations Consultation #1: spoke w Dr Je suh for admission EKG Findings - EKG Comments: EKG Findings:: EKG shows Afib 106 QRS 108 QTc 494 Medical Decision Making - Medical Decision Making 64 male DEL with dizziness. Severe dizziness especially with walking, for tenderness type symptoms. CT brain is negative patient is a new onset CHF fibrillation with RVR will admit for cardiology consult - Lab Data Result diagrams: 04/15/20 22:53 04/15/20 22:53 Lab Results 04/15/20 04/15/20 04/15/20 Range/Units 22:53 22:53 22:53 WBC 8.9 (3.8-10.6) k/uL RBC 5.00 (4.30-5.90) m/uL Hgb 15.2 (13.0-17.5) gm/dL Hct 43.1 (39.0-53.0) % MCV 86.3 (80.0-100.0) fL MCH 30.3 (25.0-35.0) pg MCHC 35.2 (31.0-37.0) g/dL RDW 12.7 (11.5-15.5) % Plt Count 188 (150-450) k/uL MPV 8.3 Neutrophils % 41 % Lymphocytes % 48 % Monocytes % 6 % Eosinophils % 2 % Basophils % 1 % Neutrophils # 3.7 (1.3-7.7) k/uL Lymphocytes # 4.3 (1.0-4.8) k/uL Monocytes # 0.5 (0-1.0) k/uL Eosinophils # 0.2 (0-0.7) k/uL Basophils # 0.0 (0-0.2) k/uL PT 10.2 (9.0-12.0) sec INR 0.9 (<1.2) APTT 19.4 L (22.0-30.0) sec D-Dimer <0.17 (<0.60) mg/L FEU Sodium 140 (137-145) mmol/L Potassium 3.3 L (3.5-5.1) mmol/L Chloride 108 H (98-107) mmol/L Carbon Dioxide 21 L (22-30) mmol/L Anion Gap 11 mmol/L BUN 17 (9-20) mg/dL Creatinine 0.83 (0.66-1.25) mg/dL Est GFR (CKD-EPI)AfAm >90 (>60 ml/min/1.73 sqM) Est GFR (CKD-EPI)NonAf >90 (>60 ml/min/1.73 sqM) Glucose 152 H (74-99) mg/dL Plasma Lactic Acid Ed (0.7-2.0) mmol/L Calcium 8.8 (8.4-10.2) mg/dL Phosphorus 2.0 L (2.5-4.5) mg/dL Magnesium 2.0 (1.6-2.3) mg/dL Total Bilirubin 0.6 (0.2-1.3) mg/dL AST 24 (17-59) U/L ALT 29 (4-49) U/L Alkaline Phosphatase 48 (38-126) U/L Creatine Kinase 95 (55-170) U/L Troponin I (0.000-0.034) ng/mL NT-Pro-B Natriuret Pep pg/mL Total Protein 7.2 (6.3-8.2) g/dL Albumin 4.1 (3.5-5.0) g/dL TSH 1.900 (0.465-4.680) mIU/L Coronavirus (PCR) (Not Detectd) 04/15/20 04/15/20 04/15/20 Range/Units 22:53 22:53 22:53 WBC (3.8-10.6) k/uL RBC (4.30-5.90) m/uL Hgb (13.0-17.5) gm/dL Hct (39.0-53.0) % MCV (80.0-100.0) fL MCH (25.0-35.0) pg MCHC (31.0-37.0) g/dL RDW (11.5-15.5) % Plt Count (150-450) k/uL MPV Neutrophils % % Lymphocytes % % Monocytes % % Eosinophils % % Basophils % % Neutrophils # (1.3-7.7) k/uL Lymphocytes # (1.0-4.8) k/uL Monocytes # (0-1.0) k/uL Eosinophils # (0-0.7) k/uL Basophils # (0-0.2) k/uL PT (9.0-12.0) sec INR (<1.2) APTT (22.0-30.0) sec D-Dimer (<0.60) mg/L FEU Sodium (137-145) mmol/L Potassium (3.5-5.1) mmol/L Chloride (98-107) mmol/L Carbon Dioxide (22-30) mmol/L Anion Gap mmol/L BUN (9-20) mg/dL Creatinine (0.66-1.25) mg/dL Est GFR (CKD-EPI)AfAm (>60 ml/min/1.73 sqM) Est GFR (CKD-EPI)NonAf (>60 ml/min/1.73 sqM) Glucose (74-99) mg/dL Plasma Lactic Acid Ed 3.5 H* (0.7-2.0) mmol/L Calcium (8.4-10.2) mg/dL Phosphorus (2.5-4.5) mg/dL Magnesium (1.6-2.3) mg/dL Total Bilirubin (0.2-1.3) mg/dL AST (17-59) U/L ALT (4-49) U/L Alkaline Phosphatase (38-126) U/L Creatine Kinase (55-170) U/L Troponin I <0.012 (0.000-0.034) ng/mL NT-Pro-B Natriuret Pep 61 pg/mL Total Protein (6.3-8.2) g/dL Albumin (3.5-5.0) g/dL TSH (0.465-4.680) mIU/L Coronavirus (PCR) (Not Detectd) 04/15/20 Range/Units 23:34 WBC (3.8-10.6) k/uL RBC (4.30-5.90) m/uL Hgb (13.0-17.5) gm/dL Hct (39.0-53.0) % MCV (80.0-100.0) fL MCH (25.0-35.0) pg MCHC (31.0-37.0) g/dL RDW (11.5-15.5) % Plt Count (150-450) k/uL MPV Neutrophils % % Lymphocytes % % Monocytes % % Eosinophils % % Basophils % % Neutrophils # (1.3-7.7) k/uL Lymphocytes # (1.0-4.8) k/uL Monocytes # (0-1.0) k/uL Eosinophils # (0-0.7) k/uL Basophils # (0-0.2) k/uL PT (9.0-12.0) sec INR (<1.2) APTT (22.0-30.0) sec D-Dimer (<0.60) mg/L FEU Sodium (137-145) mmol/L Potassium (3.5-5.1) mmol/L Chloride (98-107) mmol/L Carbon Dioxide (22-30) mmol/L Anion Gap mmol/L BUN (9-20) mg/dL Creatinine (0.66-1.25) mg/dL Est GFR (CKD-EPI)AfAm (>60 ml/min/1.73 sqM) Est GFR (CKD-EPI)NonAf (>60 ml/min/1.73 sqM) Glucose (74-99) mg/dL Plasma Lactic Acid Ed (0.7-2.0) mmol/L Calcium (8.4-10.2) mg/dL Phosphorus (2.5-4.5) mg/dL Magnesium (1.6-2.3) mg/dL Total Bilirubin (0.2-1.3) mg/dL AST (17-59) U/L ALT (4-49) U/L Alkaline Phosphatase (38-126) U/L Creatine Kinase (55-170) U/L Troponin I (0.000-0.034) ng/mL NT-Pro-B Natriuret Pep pg/mL Total Protein (6.3-8.2) g/dL Albumin (3.5-5.0) g/dL TSH (0.465-4.680) mIU/L Coronavirus (PCR) Not Detected (Not Detectd) Critical Care Time Critical Care Time: Yes Total Critical Care Time: 31 Disposition Clinical Impression: Atrial fibrillation with RVR, Generalized weakness, Vertigo Disposition: ADMITTED IP TO THIS HOSP Condition: Fair Is patient prescribed a controlled substance at d/c from ED?: No Referrals: Kosta Wooten MD [Primary Care Provider] - 1-2 days
[2020-04-15] MEDS ORDERED: DILTIAZEM 125 MG in SODIUM CHLORIDE 0.9% 100 ML IV SCH (23:00)
[2020-04-15 23:20] LABS: Basophils % (A) 1 %; Eosinophils # (A) 0.2 k/uL (0-0.7); Eosinophils % (A) 2 %; HCT 43.1 % (39.0-53.0); HGB 15.2 gm/dL (13.0-17.5); Lymphocytes # (A) 4.3 k/uL (1.0-4.8); Lymphocytes % (A) 48 %; MCH 30.3 pg (25.0-35.0); MCHC 35.2 g/dL (31.0-37.0); MCV 86.3 fL (80.0-100.0); Mean Platelet Volume 8.3; Monocytes # (A) 0.5 k/uL (0-1.0); Monocytes % (A) 6 %; Neutrophils # (A) 3.7 k/uL (1.3-7.7); Neutrophils % (A) 41 %; Platelet Count 188 k/uL (150-450); RDW 12.7 % (11.5-15.5); WBC 8.9 k/uL (3.8-10.6)
[2020-04-15 23:33] LABS: ALT 29 U/L (4-49); AST 24 U/L (17-59); African American GFR (CKD) >90 (>60 ml/min/1.73 sqM); Albumin 4.1 g/dL (3.5-5.0); Alkaline Phosphatase 48 U/L (38-126); Anion Gap 11 mmol/L; Blood Urea Nitrogen 17 mg/dL (9-20); Calcium 8.8 mg/dL (8.4-10.2); Carbon Dioxide 21 mmol/L (22-30); Chloride 108 mmol/L (98-107); Creatine Kinase 95 U/L (55-170); Glucose 152 mg/dL (74-99); Non-African American GFR(CKD) >90 (>60 ml/min/1.73 sqM); Potassium 3.3 mmol/L (3.5-5.1); Sodium 140 mmol/L (137-145); Total Bilirubin 0.6 mg/dL (0.2-1.3); Total Protein 7.2 g/dL (6.3-8.2)
[2020-04-15 23:40] LABS: D-Dimer <0.17 mg/L FEU (<0.60); INR 0.9 (<1.2); Prothrombin Time 10.2 sec (9.0-12.0)
--- NOTE | 2020-04-15 23:41 | XR ---
EXAMINATION TYPE: XR chest 2V DATE OF EXAM: 04/15/2020 COMPARISON: 10/29/2018 HISTORY: Weakness TECHNIQUE: 2 views FINDINGS: There is no heart failure nor confluent pneumonic infiltrate. Costophrenic angles are clear . There are chest leads. Bony thorax is intact. IMPRESSION: No active cardiopulmonary disease. Normal heart. There is improved inspiration compared t o old exam.
--- NOTE | 2020-04-15 23:42 | CT ---
EXAMINATION TYPE: CT brain wo con DATE OF EXAM: 04/15/2020 COMPARISON: 10/29/2018 HISTORY: weakness CT DLP: 1099.4 mGycm Automated exposure control for dose reduction was used. Ventricles have normal size. There is no mass effect nor midline shift. There is no sign of intracran ial hemorrhage. The calvarium is intact. The skull base is intact. IMPRESSION: Negative unenhanced head CT scan. No change.
[2020-04-15 23:47] LABS: Partial Thromboplastin Time 19.4 sec (22.0-30.0)
[2020-04-15] MEDS ORDERED: DILTIAZEM DRIP BOLUS FROM BAG 1 MG SOLN IV STA (23:53)
[2020-04-16] MEDS ORDERED: POTASSIUM BICARBONATE/CIT AC 20 MEQ TABLET.EFF PO ONE (00:21)
[2020-04-16] MEDS ORDERED: ASPIRIN 81 MG PO STA (00:22)
[2020-04-16] MEDS ORDERED: HEPARIN SODIUM,PORCINE 5,000 UNIT/ML 1 ML VIAL IV PRN (00:22)
[2020-04-16] MEDS ORDERED: NITROGLYCERIN SL TABS 0.4 MG TAB SUBLINGUAL PRN (00:22)
[2020-04-16] MEDS ORDERED: MORPHINE SULFATE 4 MG/ML SYRINGE IV PRN (00:22)
[2020-04-16] MEDS ORDERED: HEPARIN SODIUM,PORCINE 5,000 UNIT/ML 1 ML VIAL IV ONE (00:22)
[2020-04-16] MEDS ORDERED: HEPARIN SOD,PORK IN 0.45% NACL 25,000 UNIT in 0.45% NACL 1 250ML.BAG IV SCH (00:30)
[2020-04-16] MEDS ORDERED: SODIUM CHLORIDE 0.9% 1,000 ML IV SCH (00:30)
[2020-04-16 04:46] LABS: Appearance,Urine Clear (Clear); Bilirubin,Urine Negative (Negative); Blood,Urine Negative (Negative); Color,Urine Yellow; Glucose,Urine (UA) Negative (Negative); Ketones,Urine Trace (Negative); Leukocyte Esterase,Urine Negative (Negative); Nitrite,Urine Negative (Negative); PH, Urine 7.5 (5.0-8.0); Protein,Urine Negative (Negative); Specific Gravity,Urine 1.013 (1.001-1.035); Urobilinogen,Urine <2.0 mg/dL (<2.0)
[2020-04-16 07:43] LABS: Mean Platelet Volume 8.1; Platelet Count 177 k/uL (150-450)
[2020-04-16 08:09] LABS: Potassium 4.4 mmol/L (3.5-5.1)
[2020-04-16 08:10] LABS: African American GFR (CKD) >90 (>60 ml/min/1.73 sqM); Anion Gap 7 mmol/L; Blood Urea Nitrogen 15 mg/dL (9-20); Carbon Dioxide 25 mmol/L (22-30); Chloride 109 mmol/L (98-107); Glucose 127 mg/dL (74-99); Non-African American GFR(CKD) >90 (>60 ml/min/1.73 sqM); Sodium 141 mmol/L (137-145)
[2020-04-16] MEDS ORDERED: Potassium Replacement Protocol 1 EACH MISC MISCELLANE PRN (08:10)
[2020-04-16] MEDS ORDERED: METOPROLOL TARTRATE 25 MG TAB PO SCH (09:00)
[2020-04-16] MEDS ORDERED: POTASSIUM CHLORIDE ER 20 MEQ TAB.ER PO SCH (09:00)
[2020-04-16] MEDS: APIXABAN 5 MG TAB PO SCH ×2 (09:38→19:53)
--- NOTE | 2020-04-16 10:14 | ECHOF ---
Referral Reason:afib MEASUREMENTS -------- HEIGHT: 170.2 cm WEIGHT: 83.0 kg BP: 113/64 RVIDd: 3.2 cm (< 3.3) IVSd: 1.3 cm (0.6 - 1.1) LVIDd: 3.8 cm (3.9 - 5.3) LVPWd: 1.2 cm (0.6 - 1.1) IVSs: 1.8 cm LVIDs: 2.7 cm LVPWs: 1.7 cm LA Diam: 3.8 cm (2.7 - 3.8) LAESV Index (A-L): 23.09 ml/m Ao Diam: 3.4 cm (2.0 - 3.7) AV Cusp: 2.1 cm (1.5 - 2.6) MV EXCURSION: 19.197 mm (> 18.000) MV EF SLOPE: 381 mm/s (70 - 150) EPSS: 0.3 cm RAP: 5.00 mmHg RVSP: 25.94 mmHg FINDINGS -------- Atrial fibrillation. This was a technically adequate study. The left ventricular size is normal. There is mild concentric left ventricular hypertrophy. Overa ll left ventricular systolic function is normal with, an EF between 55 - 60 %. The right ventricle is normal in size. Normal LA size by volume 22+/-6 ml/m2. The right atrium is normal in size. Interatrial and interventricular septum intact. The aortic valve is trileaflet and appears structurally normal. The mitral valve is normal. Mild tricuspid regurgitation present. Right ventricular systolic pressure is normal at < 35 mmHg. Trace/mild (physiologic) pulmonic regurgitation. The aortic root size is normal. Normal inferior vena cava with normal inspiratory collapse consistent with estimated right atrial pre ssure of 5 mmHg. There is no pericardial effusion. CONCLUSIONS -------- 1. The left ventricular size is normal. 2. There is mild concentric left ventricular hypertrophy. 3. Overall left ventricular systolic function is normal with, an EF between 55 - 60 %. 4. Mild tricuspid regurgitation present. 5. Trace/mild (physiologic) pulmonic regurgitation. 6. There is no pericardial effusion. [employer]: Joselyn Barnes RD
[2020-04-16] MEDS: METOPROLOL TARTRATE 50 MG TAB PO SCH ×2 (10:41→19:53)
--- NOTE | 2020-04-16 14:15 | P.CRDCN ---
History of Present Illness History of present illness: HISTORY OF PRESENTING ILLNESS This is a pleasant 64-year-old male, [place] in origin with no significant medical history, who presents with symptoms of dizziness, lightheaded and fat igue. We have been asked to see in consultation for new onset atrial fibrillation. Patient is Welsh speaking however preferred son to Interpret during the Visit. Patient was hospitalized in 09/2018 patient presented with tachycardia and was started on Lopressor 25 mg twice a day. [facility] with Dr. Camara in October 2018 for a post hospital visit for tachycardia, recommended at that time to have a Holter monitor and stress echo however these were not completed by the patient. In October 2018, patient was admitted to the hospital with complaints of a sy ncopal episode, positive brief loss of consciousness per his , EKG revealed sinus rhythm, T-wave inversions anterolaterally. On discharge patient his Lopressor was discontinued. Patient is seen and examined in bed resting comfortably in no acute distress, son at bedside. Patient has been having symptoms of the room spinning and feels lightheaded and off-balance when he stands. He states that he's been diagnosed with something with his "middle ear ". Patient states that he drinks one shot of vodka a day. Patient does feel fatigued, did have an episode of nausea overnight. Per the patient and family, he has not had any symptoms, health issues or concerns for months.Denies loss of consciousness, chest pain, palpitations, nausea, abdominal pain. No symptoms of shortness of breath, or thopnea, peripheral edema, PND. States he has no history of diabetes hypertension, hyperlipidemia, previous HI, CAD, heart failure, or stroke. Laboratory data reviewed, troponin negative x2, hemoglobin 15.2, platelets 188, sodium 141, potassium 4.4, creatinine 0.73, TSH 1.9, lactate 3.5, repeat lactate 1.2 Vital signs BP 100/57, heart rate 101, respirations 16, O2 saturation 96% on room air, afebrile. DIAGNOSTICS EKG reveals atrial fibrillation with rapid ventricular response, HR 106, QTc 494 T wave inversions in lateral leads. Previous EKG in October 2018 was in sinus rhythm with T wave inversions in anterolateral leads Telemetry tracings indicate atrial fibrillation , HR 90-120. Chest xray reveals no active cardiopulmonary disease, Normal heart. CT brain- negative Current cardiac medications include atorvastatin 80 mg nightly. TTE 04/16/19: LV EF 55-60%, mild concentric left ventricular hypertrophy, mild tricuspid regurgitation Most recent nuclear stress test 10/2018- no distinct perfusion abnormality, estimated LV EF 63%. Carotid dopplers 10/2018- no evident hemodynamically significant stenosis within either visualized carotid arterial system REVIEW OF SYSTEMS At the time of my exam: CONSTITUTIONAL: Denies fever or chills. CARDIOVASCULAR: Denies chest pain, shortness of breath, orthopnea, PND or palpitations. RESPIRATORY: Denies cough. GASTROINTESTINAL: Endorses nausea. Denies abdominal pain, diarrhea, constipation, vomiting MUSCULOSKELETAL: Denies myalgias. NEUROLOGIC: Denies numbness, tingling, headacbe or weakness. ENDOCRINE: Endorses fatigue Denies weight change, polydipsia or polyurina. GENITOURINARY: Denies burning, hematuria or urgency with micturation. HEMATOLOGIC: Denies history of anemia or bleeding. PHYSICAL EXAMINATION Blood pressure BP 100/57 heart rate 101 afebrile and maintaining oxygen saturation on room air. CONSTITUTIONAL: No apparent distress. HEENT: Head is normocephalic. Pupils are equal, round. Sclerae anicteric. Mucous membranes of the mouth are moist. No JVD. No carotid bruit. CHEST EXAMINATION: Lungs are clear to auscultation. No chest wall tenderness is noted on palpation or with deep breathing. HEART EXAMINATION: Irregular rate and rhythm. S1, S2 heard. No murmurs, gallops or rub. ABDOMEN: Soft, nontender. Positive bowel sounds. EXTREMITIES: 2+ peripheral pulses, no lower extremity edema and no calf tend erness. NEUROLOGIC EXAMINATION: Patient is awake, alert and oriented x3. ASSESSMENT Dizziness, Lightheaded, Fatigue Paroxysmal Atrial Fibrillation PLAN -[id number] score 0. Patient potential candidate for cardioversion will start rate control and anticoagulation therapy. -Start anticoagulation: Eliquis 5mg BID, medication sent to [facility] pharmacy and was checked with Case management and is covered for patient -Start metoprolol 50mg BID -Discontinue: Cardizem drip, Heparin drip, aspirin -Will obtain orthostatic vital signs Nurse Practitioner note has been reviewed, I agree with a documented findings and plan of care. Patient was seen and examined. Past Medical History Past Medical History: Heart Failure, Hyperlipidemia, Pneumonia Additional Past Medical History / Comment(s): Pt recently admitted to [facility] on 10/19/18 with sepsis, CAP, pleural effusions, CHF and sinus tachycardia. Pt recently has been having dental problems. History of Any Multi-Drug Resistant Organisms: None Reported Past Surgical History: No Surgical Hx Reported Additional Past Surgical History / Comment(s): Nasal/sinus surgery. Past Anesthesia/Blood Transfusion Reactions: No Reported Reaction Past Psychological History: No Psychological Hx Reported Additional Psychological History / Comment(s): Pt resides with his spouse, son, patrick-in-law and 1 grand daughter. They are from [facility]. Pt uses no assistive device. He drives. Smoking Status: Never smoker Past Alcohol Use History: Occasional Past Drug Use History: None Reported - Past Family History Father Additional Family Medical History / Comment(s): Father at the age of 62 yrs from some sort of throat problem. Mother Family Medical History: No Reported History Additional Family Medical History / Comment(s): Mother is healthy. Family Family Medical History: No Reported History Medications and Allergies Home Medications Medication Instructions Recorded Confirmed Type Atorvastatin Calcium [Lipitor] 80 mg PO HS 04/15/20 04/15/20 History Apixaban [Eliquis] 5 mg PO BID #60 tab 04/16/20 Rx Allergies Allergy/AdvReac Type Severity Reaction Status Date / Time No Known Allergies Allergy Verified 04/15/20 22:29 Physical Exam Vitals: Vital Signs Temp Pulse Pulse Resp BP BP Pulse Ox 04/16/20 04:00 97.2 F L 113 H 17 113/64 93 L 04/16/20 02:19 92 L 04/16/20 02:00 124 H 19 04/16/20 01:02 127 H 19 109/64 96 04/16/20 00:00 96.6 F L 102 H 124 H 18 104/65 111/56 92 L 04/15/20 23:41 122 H 22 121/74 97 04/15/20 23:18 134 H 04/15/20 23:08 134 H 22 119/68 97 04/15/20 22:48 125 H 24 04/15/20 22:29 105 H 04/15/20 22:20 97.1 F L 71 22 136/81 98 Intake and Output 04/15/20 04/16/2021 22:59 06:59 14:59 Intake Total 240 Output Total 550 Balance -550 240 Intake: Oral 240 Output: Urine 550 Other: Voiding Method Toilet Urinal Weight 82.735 kg 83.2 kg Results 04/16/20 07:03 04/16/20 07:03 Cardiac Enzymes 04/15/20 04/15/20 04/16/20 Range/Units 22:53 22:53 02:17 AST 24 (17-59) U/L Troponin I <0.012 <0.012 (0.000-0.034) ng/mL 04/16/20 Range/Units 07:03 AST (17-59) U/L Troponin I 0.017 (0.000-0.034) ng/mL Coagulation 04/15/20 04/16/20 Range/Units 22:53 07:03 PT 10.2 (9.0-12.0) sec APTT 19.4 L 40.8 H (22.0-30.0) sec CBC 04/15/20 04/16/20 Range/Units 22:53 07:03 WBC 8.9 (3.8-10.6) k/uL RBC 5.00 (4.30-5.90) m/uL Hgb 15.2 (13.0-17.5) gm/dL Hct 43.1 (39.0-53.0) % Plt Count 188 177 (150-450) k/uL Comprehensive Metabolic Panel 04/15/20 04/16/20 Range/Units 22:53 07:03 Sodium 140 141 (137-145) mmol/L Potassium 3.3 L 4.4 (3.5-5.1) mmol/L Chloride 108 H 109 H (98-107) mmol/L Carbon Dioxide 21 L 25 (22-30) mmol/L BUN 17 15 (9-20) mg/dL Creatinine 0.83 0.73 (0.66-1.25) mg/dL Glucose 152 H 127 H (74-99) mg/dL Calcium 8.8 8.0 L (8.4-10.2) mg/dL AST 24 (17-59) U/L ALT 29 (4-49) U/L Alkaline Phosphatase 48 (38-126) U/L Total Protein 7.2 (6.3-8.2) g/dL Albumin 4.1 (3.5-5.0) g/dL Current Medications Generic Name Dose Route Start Last Admin Trade Name Freq PRN Reason Stop Dose Admin Apixaban 5 mg 04/16/20 09:00 Apixaban 5 Mg Tab PO BID [facility] Metoprolol Tartrate 50 mg 04/16/20 09:00 Metoprolol Tartrate 50 Mg Tab PO BID ANNIKA Miscellaneous Information 1 each 04/16/20 08:10 Potassium Replacement Protocol 1 Each Misc MISCELLANE DAILY PRN Per Protocol Protocol Morphine Sulfate 4 mg 04/16/20 00:22 Morphine Sulfate 4 Mg/Ml Syringe IV Q4HR PRN Chest Pain Nitroglycerin 0.4 mg 04/16/20 00:22 Nitroglycerin Sl Tabs 0.4 Mg Tab SUBLINGUAL Q5M PRN Chest Pain Intake and Output 04/15/20 04/16/20 04/16/20 22:59 06:59 14:59 Intake Total 240 Output Total 550 Balance -550 240 Intake: Oral 240 Output: Urine 550 Other: Voiding Method Toilet Urinal Weight 82.735 kg 83.2 kg 04/16/20 07:03 04/16/20 07:03
[2020-04-16] MEDS ORDERED: ATORVASTATIN 80 MG TAB PO SCH (21:00)
[2020-04-16 21:19] LABS: Hemoglobin A1C 6.1 % (4.0-6.0)
[2020-04-17 07:24] LABS: Platelet Count 167 k/uL (150-450)
[2020-04-17 07:34] LABS: African American GFR (CKD) >90 (>60 ml/min/1.73 sqM); Anion Gap 9 mmol/L; Blood Urea Nitrogen 20 mg/dL (9-20); Calcium 8.4 mg/dL (8.4-10.2); Carbon Dioxide 23 mmol/L (22-30); Chloride 108 mmol/L (98-107); Cholesterol 133 mg/dL (<200); Glucose 132 mg/dL (74-99); HDL Cholesterol 25 mg/dL (40-60); LDL Cholesterol,Calculated 80 mg/dL (0-99); Non-African American GFR(CKD) 90 (>60 ml/min/1.73 sqM); Potassium 4.3 mmol/L (3.5-5.1); Sodium 140 mmol/L (137-145); Triglycerides 140 mg/dL (<150)
[2020-04-17 08:02] VITALS: PULSE 64; TEMP 97.7
[2020-04-17] MEDS: APIXABAN 5 MG TAB PO SCH (08:13)
[2020-04-17] MEDS: METOPROLOL TARTRATE 50 MG TAB PO SCH (08:13)
[2020-04-17] MEDS ORDERED: ASPIRIN 325 MG TAB PO SCH (09:00)
[2020-04-17 12:09] VITALS: BP 114/63; RESP 20
--- NOTE | 2020-04-17 12:39 | P.PN ---
Subjective This is a pleasant 64-year-old male, [place] in origin with no significant medical history, who presents with symptoms of dizziness, lightheaded and fatigue. We have been asked to see in consultation for new onset atrial fibrillation. Patient is Polish speaking however preferred son to Interpret during the Visit. Patient was hospitalized in 09/2018 patient presented with tachycardia and was started on Lopressor 25 mg twice a day. He had one hospital follow-up appointment with Dr. Camara in October 2018 for a post hospital visit for tachycardia, recommended at that time to have a Holter monitor and stress echo however these were not completed by the patient. In October 2018, patient was admitted to the hospital with complaints of a syncopal episode, positive brief loss of consciousness per his , EKG revealed sinus rhythm, T-wave inversions anterolaterally. On discharge patient his Lopressor was discontinued. 04/17/20 Patient is seen and examined in bed resting comfortably in no acute distress, son at bedside. Patient alert and oriented x 3. Patient states he feels great and has no complaints. Patient denies chest pain, palpitations, nausea, abdominal pain, shortness of breath, dizziness, lightheadedness. Per RN, patient had an episode of lightheadedness overnight when looking at his cell phone. Patient's orthostatic vital signs negative yesterday. Laboratory reviewed, patient's Na 140, K4.3, serum creatinine 0.90, hemoglobin A1c 6.1, Vital signs blood pressure 99/56, heart rate 64, respirations 16, 94-95% on room air, afebrile. Telemetry tracings indicate around 8 a.m. patient converted from atrial fibrillation to sinus rhythm, HR 60-70bpm PHYSICAL EXAMINATION CONSTITUTIONAL: No apparent distress. HEENT: Head is normocephalic. Pupils are equal, round. Sclerae anicteric. Mucous membranes of the mouth are moist. No JVD. No carotid bruit. CHEST EXAMINATION: Lungs are clear to auscultation. No chest wall tenderness is noted on palpation or with deep breathing. HEART EXAMINATION: Regular rate and rhythm. S1, S2 heard. No murmurs, gallops or rub. EXTREMITIES: 2+ peripheral pulses, no lower extremity edema and no calf tenderness. ASSESSMENT Paroxysmal atrial fibrillation- spontaneously converted to sinus rhythm PLAN -[id number] score 0. Will continue on anticoagulation for now until follow up appointment, if patient stays in sinus rhythm will most likely discontinue. -Rate control: metoprolol 25mg BID (Decreased dose from 50mg to 25mg BID - due to patient preference per HPI above) -Anticoagulation: Eliquis 5mg BID, medication sent to [facility] pharmacy and was checked with Case management and is covered for patient -Patient is stable to be discharged from cardiology standpoint -Patient to follow-up in clinic with Dr. Camara in 2-3 weeks Nurse Practitioner note has been reviewed, I agree with a documented findings and plan of care. Patient was seen and examined. Objective - Vital Signs Vital signs: Vital Signs Temp 97.7 F 04/17/20 07:57 Pulse 64 04/17/20 07:57 Resp 16 04/17/20 07:57 BP 99/56 04/17/20 07:57 Pulse Ox 94 L 04/17/20 07:57 Intake & Output 04/16/20 04/17/20 04/17/20 18:59 06:59 18:59 Intake Total 980 660 Balance 980 660 Weight 84.1 kg Intake: Oral 980 660 Other: Voiding Method Toilet Urinal # Voids 2 1 1 - Labs CBC & Chem 7: 04/17/20 06:46 04/17/20 06:46 Labs: Abnormal Lab Results - Last 24 Hours (Table) 04/16/20 04/17/20 Range/Units 07:03 06:46 Chloride 108 H (98-107) mmol/L Glucose 132 H (74-99) mg/dL Hemoglobin A1c 6.1 H (4.0-6.0) % HDL Cholesterol 25 L (40-60) mg/dL
--- NOTE | 2020-04-17 18:36 | HP ---
HISTORY AND PHYSICAL CHIEF COMPLAINT: Diaphoresis, palpitations, dizziness and shortness of breath. HISTORY OF PRESENT ILLNESS: This is another admission for this 64-year-old Mediterranean gentleman who does not speak Frisian. He has been in the hospital in the past for supraventricular tachycardia. He was placed on a beta brennan, but he did not tolerate it well. It dropped his blood pressure. He has been doing well without it and was recently in for an annual assessment and had normal blood pressure and pulse. He has suddenly developed diaphoresis, dizziness, lightheadedness and shortness of breath. He came to the emergency room, where he was found to be in SVT with a rapid ventricular response rate of about 130 beats per minute. He had a little bit of chest discomfort. He had no focal neurologic deficits, etc. He had no fever chills. REVIEW OF SYSTEMS: Review of systems is otherwise unremarkable. He has had no cough, abdominal pain, nausea, vomiting, melena, hematochezia, diarrhea, renal failure, frequency, urgency, dysuria, incontinence, nocturia, diabetes, etc. Past medical history, family history, and personal and social histories are all otherwise unremarkable or unchanged. He is NOT ALLERGIC TO ANY MEDICATION. He is only taking atorvastatin 80 and vitamin D. He does not smoke or drink. PHYSICAL EXAMINATION: Blood pressure is 118/60 with a pulse of 130, irregularly regular. Respirations were 36. He is afebrile. In general he appeared to be well developed, well nourished, in no acute distress. Skin color is normal. Skin is warm and dry. Lymph nodes are not enlarged. Head, ears, eyes, nose, mouth and throat are normal. Neck veins are not distended. Thyroid is not enlarged. Chest is clear. Cardiac exam demonstrates tachycardia with no murmurs or extra sounds. The abdomen is soft and nontender. Extremities are normal. Neurologically he is intact. He is admitted to the hospital with diagnoses: 1. Atrial fibrillation with rapid ventricular response. 2. Hyperlipidemia. PLAN: 1. Bedrest. 2. IV fluids. 3. Consult Cardiology. 4. Rate and rhythm control. 5. Troponin. 6. Anticoagulate. 7. Echocardiogram. MMODL / IJN: [id number] /
--- NOTE | 2020-04-17 18:48 | PN ---
PROGRESS NOTE DATE OF SERVICE: 04/16/2020 CHIEF COMPLAINT: Atrial fibrillation. HISTORY OF PRESENT ILLNESS: This gentleman's rate has come down. He feels better. He has had no dizziness, shortness of breath, chest pain, etc. PHYSICAL EXAMINATION: Color is good. Vital signs are normal. His ventricular response rate is down to around 110 beats per minute. Abdomen is soft and nontender. Extremities are normal. IMPRESSION: Atrial fibrillation with rapid ventricular response. PLAN: 1. Continue with Cardizem drip. 2. Cardiology has ordered an echocardiogram. MMODL / IJN: [id number] /
--- NOTE | 2020-04-17 19:46 | PN ---
PROGRESS NOTE CHIEF COMPLAINT: SVT with rapid ventricular response. HISTORY OF PRESENT ILLNESS: This gentleman is doing well. He has gone back into sinus rhythm with a rate of around 85 or 90 and he feels well. He has had no chest pain. PHYSICAL EXAMINATION: His chest is clear. On the cardiac exam it sounds like he is in a regular sinus rhythm now. The abdomen is soft and nontender. Extremities are normal. IMPRESSION: Atrial fibrillation with rapid ventricular response. PLAN: 1. Increase activity. 2. Anticoagulate. 3. Await any further recommendations from Cardiology. He could probably go home soon. MMODL / IJN: [id number] /
[2020-04-17] MEDS ORDERED: METOPROLOL TARTRATE 25 MG TAB PO SCH (21:00)
--- NOTE | 2020-04-18 14:09 | DS ---
DISCHARGE SUMMARY CHIEF COMPLAINT: Sweatiness, dizziness, and palpitations. HISTORY OF PRESENT ILLNESS AND PHYSICAL EXAMINATION: Details of this man's history and physical can be found in the initial workup. LABORATORY STUDIES: While he was in a hospital he had laboratory studies, details of which can be found in the laboratory section of his chart. COURSE IN THE HOSPITAL: After admission he was placed on bedrest and started on intravenous fluids and he was anticoagulated. He was seen by Cardiology. He was started on Cardizem drip and he converted to sinus rhythm. Cardiology completed their evaluation. He was discharged on the . I was not notified of his discharge and the patient went home without proper instructions or followup. The patient and the family were upset about this. FINAL DIAGNOSIS: Atrial fibrillation with rapid ventricular response. OPERATIONS: None. CONSULTATION: Cardiology. He is improved. MMODL / CARMENN: [id number] /
== END 2020-04-17 18:00 | disposition home or self-care (01) ==
LOC: EC 22:19 → 3SCARD 04-16 00:23 → INTOOBSV 04-16 00:23 → UNDODISIN 04-17 18:00
PROVIDERS: ADMIT Family Medicine; ATTEND Family Medicine
DX: I48.0 Paroxysmal atrial fibrillation (principal); I36.1 Nonrheumatic tricuspid (valve) insufficiency; I47.1 Supraventricular tachycardia; E78.5 Hyperlipidemia, unspecified; R11.0 Nausea; Z79.899 Other long term (current) drug therapy; Z20.822 Contact with and (suspected) exposure to COVID-19; Z87.01 Personal history of pneumonia (recurrent); Z86.79 Personal history of other diseases of the circulatory system
CPT/HCPCS: 96361; 96366 ×2; 93005 ×3; 96376; 96368; 96365; 96375; 99291; 36415; 94760; 93306; 85379; 83880; 80061; 80053; 80048 ×2; 84443 ×2; 82550; 83605 ×2; 83735; 84100; 84484 ×2; 85025; 85049 ×2; 85610; 85730 ×2; 81003; 83036; 87635; 71046; 70450; G0378 ×2; J1200; J1644 ×2; J2405

== ENCOUNTER 2020-09-01 10:27 | Emergency (ER) | payer OTHER ==
--- NOTE | 2020-09-01 10:38 | ED ---
General Adult HPI - General Stated complaint: needs Covid test Time Seen by Provider: 09/01/20 10:30 Source: patient, family, RN notes reviewed Mode of arrival: ambulatory Limitations: no limitations - History of Present Illness Initial comments: This a 65-year-old male presents emergency department for COVID-19 testing. Patient is asymptomatic denies fevers cough congestion sore throat nausea vomiting diarrhea constipation. He only needs a tests because they are traveling to [place]. Patient offers no other complaints. - Related Data Home Medications Medication Instructions Recorded Confirmed Atorvastatin Calcium [Lipitor] 80 mg PO HS 04/15/20 04/15/20 Previous Rx's Medication Instructions Recorded Apixaban [Eliquis] 5 mg PO BID #60 tab 04/16/20 Metoprolol Tartrate 25 mg PO BID #60 tab 04/17/20 Nitroglycerin Sl Tabs [Nitrostat] 0.4 mg SUBLINGUAL Q5M PRN #30 tab 04/17/20 Allergies Allergy/AdvReac Type Severity Reaction Status Date / Time No Known Allergies Allergy Verified 09/01/20 10:35 Review of Systems ROS Statement: Those systems with pertinent positive or pertinent negative responses have been documented in the HPI. ROS Other: All systems not noted in ROS Statement are negative. Past Medical History Past Medical History: Heart Failure, Hyperlipidemia, Pneumonia Additional Past Medical History / Comment(s): Pt recently admitted to [facility] on 10/19/18 with sepsis, CAP, pleural effusions, CHF and sinus tachycardia. Pt recently has been having dental problems. History of Any Multi-Drug Resistant Organisms: None Reported Past Surgical History: No Surgical Hx Reported Additional Past Surgical History / Comment(s): Nasal/sinus surgery. Past Anesthesia/Blood Transfusion Reactions: No Reported Reaction Past Psychological History: No Psychological Hx Reported Smoking Status: Never smoker Past Alcohol Use History: Occasional Past Drug Use History: None Reported - Past Family History Father Additional Family Medical History / Comment(s): Father at the age of 62 yrs from some sort of throat problem. Mother Family Medical History: No Reported History Additional Family Medical History / Comment(s): Mother is healthy. Family Family Medical History: No Reported History General Exam Limitations: no limitations General appearance: alert, in no apparent distress Head exam: Present: atraumatic, normocephalic, normal inspection Neck exam: Present: normal inspection, full ROM. Absent: tenderness, lymphadenopathy Respiratory exam: Present: normal lung sounds bilaterally. Absent: respiratory distress, wheezes, rales, rhonchi, stridor Cardiovascular Exam: Present: regular rate, normal rhythm, normal heart sounds. Absent: systolic murmur, diastolic murmur, rubs, gallop, clicks Medical Decision Making - Lab Data Lab Results 09/01/20 Range/Units 10:43 Coronavirus (PCR) Not Detected (Not Detectd) Disposition Clinical Impression: Encounter for laboratory testing for COVID-19 virus Disposition: HOME SELF-CARE Condition: Stable Additional Instructions: COVID-19 test is negative. Please return to the Emergency Department if symptoms worsen or any other concerns. Is patient prescribed a controlled substance at d/c from ED?: No Referrals: Kosta Wooten MD [Primary Care Provider] - 1-2 days Time of Disposition: 11:29
== END 2020-09-01 11:45 | disposition home or self-care (01) ==
LOC: EC 10:27
DX: Z20.822 Contact with and (suspected) exposure to COVID-19 (principal); I50.9 Heart failure, unspecified; E78.5 Hyperlipidemia, unspecified; Z79.01 Long term (current) use of anticoagulants
CPT/HCPCS: 87635; 99281